=== PATIENT | female | born 1985 | race Caucasian/White ===

== ENCOUNTER 2017-01-24 10:56 | Emergency (ER) | payer OTHER ==
[~2017-01-24] VITALS: Ht 175.3 cm; Wt 164.0 kg
[~2017-01-24 10:56] MED LIST: ASPI-390 PO; BCPILLS PO; CARI350T28 PO; GABA1CAP4 PO; HYDR5SYP11 PO; METF-384 PO; MTR800 PO; OMEP40CA PO; PROP40TA5 PO; PRVC/20 PO; RANI300T PO; RBX750 PO; VNTHFA/IN INH; ZLF/100 PO
[2017-01-24 11:07] VITALS: TEMP 36.8; Ht 175.3 cm; Wt 164.0 kg
[2017-01-24] MEDS ORDERED: MoRPHine SULFATE 4 MG/ML 1 ML CARP\\VIAL IV STA (11:50)
[2017-01-24] MEDS ORDERED: KETOROLAC TROMETHAMINE 30 MG/ML VIAL IV STA (11:50)
[2017-01-24] MEDS ORDERED: SODIUM CHLORIDE 0.9% 1000ML 1,000 ML IV STA ×2 (11:50)
[2017-01-24] MEDS ORDERED: ONDANSETRON INJ 2 MG/ML 2 ML VIAL IV STA ×2 (11:50→15:06)
[2017-01-24 12:28] LABS: BASO % 0.9 %; BASO ABS # 0.05 K/uL (0-0.2); COMPLETE YES; EOS % 1.2 %; HEMATOCRIT 37.8 % (37-47); IG% 0.5 %; LYMPH % 23.8 %; LYMPH ABS # 1.38 K/uL (1.2-3.4); MEAN CELL VOLUME 81.1 fL (80-100); MEAN PLATELET VOLUME 9.1 fL (7.4-10.4); MONO % 9.5 %; NEUT % 64.1 %; PLATELET COUNT 421 K/uL (130-400); RED BLOOD COUNT 4.66 M/uL (4.2-5.4); WHITE BLOOD COUNT 5.81 K/uL (4.8-10.8)
[2017-01-24 12:45] LABS: BUN/CREATININE RATIO 12.3 (10-20); CALCIUM 7.9 mg/dl (8.5-10.1); CREATININE 0.82 mg/dl (0.60-1.20); POTASSIUM 3.7 mmol/L (3.5-5.1)
--- NOTE | 2017-01-24 13:06 | DIAGNOSTIC IMAGING REPORT ---
PELVIC ULTRASOUND CLINICAL HISTORY: Pelvic pain. COMPARISON STUDY: Pelvic ultrasound November 09, [address] of the abdomen and pelvis March 16, 2016. TECHNIQUE: Transabdominal and transvaginal sonography of the pelvis was performed. FINDINGS: This exam is compromised by suboptimal penetration. The uterus measures 8.7 x 4.4 x 5.1 cm. Endometrium measures 9 mm in thickness. There are numerous suspected nabothian cysts within the cervix. The right ovary was not visualized. The left ovary measured 4.6 x 2.9 x 4.3 cm. There is color flow within the left ovary. No free fluid was identified. IMPRESSION: 1. Unremarkable sonographic appearance of the uterus and left ovary. 2. Nonvisualization of the right ovary. 3. Numerous suspected nabothian cysts within the cervix. Electronically signed by: Jose Mccray M.D. 01/24/2017 1:04 PM Dictated Date/Time: 01/24/2017 1:03 PM
[2017-01-24] MEDS ORDERED: CARI350T28 PO (13:56)
[2017-01-24] MEDS ORDERED: IBUP-1428 PO (13:56)
[2017-01-24] MEDS ORDERED: PROP20TA67 PO (13:56)
[2017-01-24] MEDS ORDERED: GABA-113 PO (13:56)
[2017-01-24] MEDS ORDERED: TRAM-10 PO (13:56)
[2017-01-24] MEDS ORDERED: PRAV20TA PO (13:56)
[2017-01-24] MEDS ORDERED: LSN/10125 PO (13:56)
[2017-01-24] MEDS ORDERED: RANI300T PO (13:56)
[2017-01-24] MEDS ORDERED: PRLSR20 PO (13:56)
[2017-01-24] MEDS ORDERED: METF-384 PO (13:56)
[2017-01-24] MEDS ORDERED: BUPR75TA20 PO (13:56)
[2017-01-24] MEDS ORDERED: MONT1TAB3 PO (13:56)
[2017-01-24] MEDS ORDERED: CLIN1GEL5 TOP (13:56)
[2017-01-24] MEDS ORDERED: MoRPHine SULFATE 10 MG/ML CARP/VIAL IV STA (14:09)
[2017-01-24] MEDS ORDERED: DiphenhydrAMINE HCL 50 MG/ML VIAL IV STA (14:14)
[2017-01-24] MEDS ORDERED: OPTIRAY 320 IV PRN (14:15)
--- NOTE | 2017-01-24 14:47 | DIAGNOSTIC IMAGING REPORT ---
ABDOMEN AND PELVIS CT WITH IV CONTRAST CT DOSE: 2232.21 mGy.cm HISTORY: Pain PELVIC, RLQ PAIN TECHNIQUE: Multiaxial CT images of the abdomen and pelvis were performed following the use of intravenous contrast. COMPARISON STUDY: 03/16/2016 FINDINGS: Lung bases are clear. Liver spleen and pancreas are unremarkable. Prior cholecystectomy. Kidneys negative for calcification or hydronephrosis. Bowel pattern is remarkable for scattered colonic diverticulosis. There is no evidence for acute diverticulitis. May be a small follicular left ovarian cyst. Uterus is anteflexed. IMPRESSION: 1. Prior cholecystectomy. 2. Otherwise negative study abdomen and pelvis Electronically signed by: Oneil Santos M.D. 01/24/2017 2:46 PM Dictated Date/Time: 01/24/2017 2:38 PM
[2017-01-24] MEDS ORDERED: HYDR-5688 PO (15:42)
--- NOTE | 2017-01-24 15:42 | EMERGENCY ROOM VISIT NOTE ---
History First contact with patient: 11:17 Chief Complaint: OTHER COMPLAINT Stated Complaint: MASSIVE CRAMPS,DARK BLOOD PERIOD, PAIN IN RT SIDE History of Present Illness Patient is a 31-year-old white female with past medical history significant for metabolic syndrome, PCOS, fibromyalgia, migraine disorder and morbid obesity who presents emergency department for evaluation of pelvic pain. Patient is on oral contraceptive. She reports that her menses are typically irregular, and she gets a period every other month. She reports that she developed some pelvic cramping and had dark bloody discharge 3 days about 4 days ago. She states the flow was light. She had no bleeding or discharge yesterday. She states that she developed very severe pelvic cramping, right worse than left around midnight last night. She took ibuprofen, Excedrin Migraine and tramadol for her discomfort. She feels nauseous secondary to the pain. She feels it radiates through to her back. She does report some scant brownish discharge this morning. She denies any urinary symptoms. No changes in her bowel habits. She denies any chance of . She has never been . She was seen at an urgent care center in [place] and directed to the emergency department. She reports frequent east infections with her menses, denies any urinary symptoms or itching or burning. She presently rates her pain an 8/10. Review of Systems Review of systems as per HPI. All other systems reviewed were negative. 10 systems reviewed. Past Medical/Surgical History Medical Problems: (1) Abdominal cramps (2) Abdominal muscle strain (3) Abdominal pain (4) Abdominal pain (5) Abdominal pain (6) Acute Pancreatitis (7) Acute Sinusitis Nos (8) Anxiety (9) Bilateral leg pain (10) Calf pain (11) Cervical adenopathy (12) Chest pain (13) Cholecystectomy (14) Contusion, multiple sites (15) Epigastric pain (16) Fall (17) Fall down stairs (18) Gastroesophageal reflux disease (19) Headache (20) Headache (21) History of - hypertension (22) Hypokalemia (23) Intrauterine device (IUD) migration (24) Localized swelling of both lower legs (25) Medication reaction (26) Migraine Unspecified W/O Intractable Migraine (27) Nausea & vomiting (28) Nausea and vomiting (29) Neck pain (30) Neck pain (31) Non-cardiac chest pain (32) Ovarian cyst (33) Pain with swallowing (34) Pelvic pain (35) Polycystic Ovaries (36) Pre-syncope (37) Pure Hypercholesterolem (38) Pyelonephritis (39) Right ovarian cyst (40) Sore throat (41) Squeezing chest pain (42) URI (upper respiratory infection) (43) Urin Tract Infection Nos (44) Urinary tract infection (45) Wheezing Electronic medical records are reviewed and summarized as above/below. See Problem List. Family History Cancer Diabetes mellitus Gallbladder disease Hypertension Kidney disease Kidney stones Lung disease Social History Smoking Status: Never Smoker Alcohol Use: none Drug Use: none Marital Status: in relationship Housing Status: lives with significant other Occupation Status: unemployed Current/Historical Medications Scheduled Bupropion (Wellbutrin), 150 MG PO DAILY Carisoprodol (Soma), 350 MG PO QID Clindamycin Phosphate (Topical (Clindamycin Phosphate), 1 APPLN TOP BID Gabapentin (Neurontin), 300 MG PO TID Hctz/Lisinopril (Lisinopril/Hctz 10/12.5 Mg), 1 TAB PO DAILY Metformin Hcl (Glucophage), 1,000 MG PO DAILY Montelukast Sodium (Singulair), 10 MG PO DAILY Omeprazole (Prilosec), 20 MG PO DAILY Pravastatin (Pravachol ), 20 MG PO DAILY Propranolol (Inderal), 40 MG PO BID Ranitidine Hcl (Zantac), 300 MG PO DAILY Scheduled PRN Hydrocodone/Acetaminophen 5MG/325MG (Greenwood 5MG/325MG), 1-2 TABLETS PO Q4 PRN for Pain Ibuprofen (Motrin), 800 MG PO Q8H PRN for Pain Tramadol (Ultram), 50 MG PO Q8H PRN for Pain Allergies Coded Allergies: Mushroom Extract Complex (Verified Allergy, Severe, EDEMA OF FACE, LIPS, TONGUE, 06/16/16) Shellfish (Verified Allergy, Severe, EDEMA OF FACE, LIPS, TONGUE, 06/16/16 ) Sumatriptan (Verified Allergy, Severe, AIRWAY EDEMA, 06/16/16) Simvastatin (Verified Allergy, Mild, WORSENING OF MUSCLE PAIN, 06/16/16) Iodine (Verified Allergy, Unknown, RASH, 06/16/16) PER ARIANA IN CT, PT IS ALLERGIC TO TOPICAL IODINE, SO OPTIRAY IS OK FOR THIS PT. Mushroom (Verified Allergy, Unknown, SHORTNESS OF BREATH, 06/16/16) Physical Exam Vital Signs Date Time Temp Pulse Resp B/P (MAP) Pulse Ox O2 Delivery O2 Flow Rate FiO2 01/24/17 16:14 63 20 125/72 98 Room Air 01/24/17 14:46 60 20 111/66 100 Room Air 01/24/17 13:09 62 20 139/77 97 Room Air 01/24/17 11:07 36.8 78 18 144/88 98 Room Air Physical Exam CONSTITUTIONAL: Morbidly obese 31-year-old white female who is awake and alert and in mild distress due to her pelvic. EYES: Pupils equal, round, reactive to light and accommodation. EOMs intact without nystagmus. Sclera are anicteric. ENT: Tympanic membranes intact, with normal landmarks. External canals are clear. Oral and nasopharynx are clear. Mucous membranes are moist, no lesions , tongue and gums appear normal. NECK: No bruits auscultated. Supple without lymphadenopathy. No thyromegaly. No meningeal signs. Full active range of motion without discomfort. CARDIOVASCULAR: Regular rate and rhythm, with normal S1 and S2, no murmur or gallop or rub is heard. No carotid bruits auscultated. No JVD. Peripheral pulses easy to palpable. RESPIRATORY: Breath sounds equal and clear to auscultation without wheezes, rales, or rhonchi heard. Full and equal chest expansion without accessory muscle use or retractions. GI: Bowel sounds are present. Abdomen is soft, obese, tender in the suprapubic and right and left lower quadrants, without guarding, rebound or rigidity. No organomegaly. No pulsatile masses. Pelvic Exam: Genitalia are normal Vagina noted scant dark brownish bloody discharge. Cervix is closed without lesions. No cervical motion tenderness. Uterus and adnexa not palpable on bimanual exam due to patient body habitus. MUSCULOSKELETAL: Full range of motion of extremities x 4 with good strength. No cyanosis, edema, joint tenderness or swelling. No deformity. INTEGUMENTARY: No lesions or rash, normal skin turgor. NEUROLOGICAL: Alert, oriented, and cooperative. Cranial nerves, sensation and strength grossly intact. Pupils round, equal, and react to light, EOMs are full. LYMPH: No lymphadenopathy. Medical Decision & Procedures ER Provider Diagnostic Interpretation: PELVIC ULTRASOUND CLINICAL HISTORY: Pelvic pain. COMPARISON STUDY: Pelvic ultrasound November 09, [address] of the abdomen and pelvis March 16, 2016. TECHNIQUE: Transabdominal and transvaginal sonography of the pelvis was performed. FINDINGS: This exam is compromised by suboptimal penetration. The uterus measures 8.7 x 4.4 x 5.1 cm. Endometrium measures 9 mm in thickness. There are numerous suspected nabothian cysts within the cervix. The right ovary was not visualized. The left ovary measured 4.6 x 2.9 x 4.3 cm. There is color flow within the left ovary. No free fluid was identified. IMPRESSION: 1. Unremarkable sonographic appearance of the uterus and left ovary. 2. Nonvisualization of the right ovary. 3. Numerous suspected nabothian cysts within the cervix. ABDOMEN AND PELVIS CT WITH IV CONTRAST CT DOSE: 2232.21 mGy.cm HISTORY: Pain PELVIC, RLQ PAIN TECHNIQUE: Multiaxial CT images of the abdomen and pelvis were performed following the use of intravenous contrast. COMPARISON STUDY: 03/16/2016 FINDINGS: Lung bases are clear. Liver spleen and pancreas are unremarkable. Prior cholecystectomy. Kidneys negative for calcification or hydronephrosis. Bowel pattern is remarkable for scattered colonic diverticulosis. There is no evidence for acute diverticulitis. May be a small follicular left ovarian cyst. Uterus is anteflexed. IMPRESSION: 1. Prior cholecystectomy. 2. Otherwise negative study abdomen and pelvis Laboratory Results 01/24/17 12:00 Red Blood Count 4.66, Mean Corpuscular Volume 81.1, Mean Corpuscular Hemoglobin 26.0, Mean Corpuscular Hemoglobin Concent 32.0, Mean Platelet Volume 9.1, Neutrophils (%) (Auto) 64.1, Lymphocytes (%) (Auto) 23.8, Monocytes (%) (Auto) 9.5, Eosinophils (%) (Auto) 1.2, Basophils (%) (Auto) 0.9, Neutrophils # (Auto) 3.73, Lymphocytes # (Auto) 1.38, Monocytes # (Auto) 0.55, Eosinophils # (Auto) 0.07, Basophils # (Auto) 0.05 01/24/17 12:00 Test 01/24/17 00:00 01/24/17 11:30 01/24/17 12:00 Urine Test NEG (NEG) White Blood Count 5.81 K/uL (4.8-10.8) Red Blood Count 4.66 M/uL (4.2-5.4) Hemoglobin 12.1 g/dL (12.0-16.0) Hematocrit 37.8 % (37-47) Mean Corpuscular Volume 81.1 fL (80-100) Mean Corpuscular Hemoglobin 26.0 pg (25-34) Mean Corpuscular Hemoglobin Concent 32.0 g/dl (32-36) Platelet Count 421 K/uL (130-400) Mean Platelet Volume 9.1 fL (7.4-10.4) Neutrophils (%) (Auto) 64.1 % Lymphocytes (%) (Auto) 23.8 % Monocytes (%) (Auto) 9.5 % Eosinophils (%) (Auto) 1.2 % Basophils (%) (Auto) 0.9 % Neutrophils # (Auto) 3.73 K/uL (1.4-6.5) Lymphocytes # (Auto) 1.38 K/uL (1.2-3.4) Monocytes # (Auto) 0.55 K/uL (0.11-0.59) Eosinophils # (Auto) 0.07 K/uL (0-0.5) Basophils # (Auto) 0.05 K/uL (0-0.2) RDW Standard Deviation 48.3 fL (36.4-46.3) RDW Coefficient of Variation 16.4 % (11.5-14.5) Immature Granulocyte % (Auto) 0.5 % Immature Granulocyte # (Auto) 0.03 K/uL (0.00-0.02) Anion Gap 10.0 mmol/L (3-11) Est Creatinine Clear Calc Drug Dose 162.3 ml/min Estimated GFR () 109.0 Estimated GFR (Non- 94.0 BUN/Creatinine Ratio 12.3 (10-20) Calcium Level 7.9 mg/dl (8.5-10.1) Date/Time Source Procedure Growth Status 01/24/17 00:00 Vaginal Swab Trichomonas Preparation - Final Complete Medications Administered Medications (Trade) Dose Ordered Sig/Krupa Route Start Time Stop Time Status Last Admin Dose Admin Sodium Chloride 1,000 ml @ 999 mls/hr Q1H1M STAT IV 01/24/17 11:50 01/24/17 12:50 DC 01/24/17 12:03 999 MLS/HR Sodium Chloride 1,000 ml @ 250 mls/hr Q4H STAT IV 01/24/17 11:50 01/24/17 15:49 DC 01/24/17 12:03 250 MLS/HR Ondansetron HCl (Zofran Inj) 4 mg NOW STAT IV 01/24/17 11:50 01/24/17 11:53 DC 01/24/17 12:03 4 MG Ketorolac Tromethamine (Toradol Inj) 30 mg NOW STAT IV 01/24/17 11:50 01/24/17 11:53 DC 01/24/17 12:03 30 MG Morphine Sulfate (MoRPHine SULFATE INJ) 4 mg NOW STAT IV 01/24/17 11:50 01/24/17 11:53 DC 01/24/17 12:02 4 MG Morphine Sulfate (MoRPHine SULFATE INJ) 6 mg NOW STAT IV 01/24/17 14:09 01/24/17 14:11 DC 01/24/17 14:21 6 MG Diphenhydramine HCl (Benadryl Inj) 50 mg NOW STAT IV 01/24/17 14:14 01/24/17 14:15 DC 01/24/17 14:21 50 MG Ondansetron HCl (Zofran Inj) 4 mg NOW STAT IV 01/24/17 15:06 01/24/17 15:07 DC 01/24/17 15:24 4 MG Fluconazole (Diflucan Tab) 150 mg NOW ONCE PO 01/24/17 15:45 01/24/17 15:46 DC 01/24/17 16:13 150 MG ED Course The patient was seen and evaluated as above. Her old records were reviewed. IV lock was initiated and she was hydrated with normal saline solution. Pelvic exam was performed and cultures were obtained. CBC with differential, BMP and urine dip and urine test were performed. Given her history of ovarian cysts, pelvic ultrasound was ordered. Laboratory studies normal white count and stable H&H. Electrolytes are within normal limits. Urine dip noted trace blood, likely contamination from the vaginal bleeding, no other indicators for infection. Urine test was negative. Swab for Chlamydia and gonorrhea is pending. Trichomonas was negative. Vaginal Gram stain noted no clue cells and rare yeast. Pelvic ultrasound noted endometrial lining measuring 9 mm. Right ovary was unfortunately nonvisualized. Left ovary was unremarkable. There is no free fluid. Patient required additional pain medication and nausea medication after ultrasound and was given an additional dose of morphine and Zofran. Given her persistent right lower quadrant pain and nonvisualization of the right ovary by ultrasound, CT scan was performed. She was given Benadryl 50 mg IV prior to CT to premedicate as she reports a history of an iodine allergy. She has never had problems with IV contrast however. Postsurgical changes of cholecystectomy were noted. There is no evidence for hydronephrosis. Bowel pattern was unremarkable. Evidence for diverticulosis without diverticulitis. No adnexal lesions were noted. All laboratory and diagnostic imaging studies were reviewed with the patient. Differential diagnoses entertained included UTI, pyelonephritis, renal colic, ovarian cyst, ovarian torsion, dysmenorrhea, PID, tubo-ovarian abscess, mass or malignancy, , ectopic , among others. Conservative care measures were discussed. She was encouraged to use heat, ibuprofen, and was given a small prescription for Greenwood to use as needed for severe pain. She was advised to follow-up with her molded candles wicker for further care and evaluation. She was treated with Diflucan 150 mg orally 1 prior to discharge due to the yeast on vaginal Gram stain. The patient rated her discomfort a 4/10 at discharge. Medical Decision See Emergency Department course. [facility] Drug Monitoring Program Search Results: patient reviewed within database, no issues identified Impression Primary Impression: Pelvic pain Departure Information Prescriptions Hydrocodone/Acetaminophen 5MG/325MG (Greenwood 5MG/325MG) Tab 1-2 TABLETS PO Q4 Y for Pain, #15 TAB For Initial Treatment Prov: Leda Mejia PA 01/24/17 Referrals Radha Jimenez M.D. (PCP) Patient Instructions My [facility] Additional Instructions DO NOT drive, drink alcohol, operate machinery, or perform dangerous activities today. You were given medications in the ER that can affect your ability to safely function or operate a vehicle. Hydrocodone/Acetaminophen (Greenwood) 5/325 mg: Take 1-2 pills every four hours for breakthrough pain. Avoid alcohol, operating machinery or dangerous equipment, working on ladders or roofs, DRIVING, or situations where being under the influence may be dangerous. It is recommended to use an [id number] stool softener such as Colace, 100mg twice daily while taking this medication to avoid constipation. Ibuprofen(Motrin, Advil) may be used for fever or pain. Use 600mg every six hours as needed. Take with food. Avoid using more than 2400mg in a 24 hour period. Do not use 2400mg per day for more than three consecutive days without physician direction. Prolonged inappropriate use can lead to stomach upset or ulcers. This is available over the counter and typically comes in 200mg tablets. (AND/OR) Acetaminophen(Tylenol) may be used for fever or pain. Use 1000mg every eight hours as needed. Avoid using more than 3000mg in a 24 hour period. This is available over the counter. Zofran(odansetron) tablets 4mg: Take one and allow it to dissolve in your mouth every four hours as needed for nausea or vomiting. Phenergan(promethazine) tablets 25mg: Take one every six hours as needed for nausea. Avoid alcohol, operating machinery or dangerous equipment, working on ladders or roofs, DRIVING, or situations where being under the influence may be dangerous. Read all the package inserts or medication information paperwork provided. If you have any questions or concerns call your primary provider, pharmacist or the ER for assistance. Rest and drink plenty of fluids as tolerated. Slow sips of water or sports drinks are recommended instead of large amounts all at once. Continue current medications. Once your stomach is settled start with a clear liquid diet (jello, soup broth, etc.) and then advance as tolerated. You should avoid full, heavy meals for about 24 hrs from the time your symptoms resolved. Return to the ER immediately for worsening or persistent abdominal pain, vomiting, fevers, chest pains, difficulty breathing, black or bloody stools, worsening of your condition, or as needed. Follow up with your [facility] for a recheck of your current condition.
[2017-01-24] MEDS ORDERED: FLUCONAZOLE 50 MG TAB PO ONE (15:45)
[2017-01-24 16:14] VITALS: BP 125/72; PULSE 63; O2SAT 98
[2017-01-27 11:29] LABS: CHLAMYDIA TRACH RNA*** NOT DETECTED (NOT DETECTED); GC (NEIS GONORRHOEAE)RNA** NOT DETECTED (NOT DETECTED)
--- NOTE | 2017-01-28 15:45 | Pharmacy Progress Note ---
ED Pharmacist Culture FollowUp Date of Service: Jan 28, 2017. Genital Cx from 01/24 is growing yeast, not margareth albicans. The patient was seen in ER for c/o pelvic cramping, R worse than L, along w/ bloody discharge x 3 days. Patient does have a h/o frequent yeast infections, as well as metabolic syndrome and PCOS. trich, chlamydia and gonorrhoeae were all negative. Pelvic exam per provider's note: scant dark brown/blood discharge noted, no cervical lesions, no motion tenderness Patient was not dx with vulvovaginal candidiasis during this visit and was not given a rx for treatment of v candidiasis. The patient's symptoms did not fit with the dx of vaginal candidiasis "(no pruritis, burning, erythema, edema, excoriation, fissures; also drainage was not white or curd-like; nor was there mention of vaginal odor). If this organism were pathogenic, treatment would be difficult as non-margareth albicans yeast (c glabrata, c krusei) are typically resistant to fluconazole. The recommended treatment for such infections is intravaginal boric acid 600mg daily x 14 days. I did contact the patient at home to determine if her symptoms were improving. The patient states she went home from the hospital and took the pain medication and went to sleep. The next morning she awoke feeling much better and has continued to feel well. Based upon lack of classical s/s of vaginal candidiasis and improvement in symptoms w/o therapy as well as possibility that the patient could be colonized with non-albicans candidia, no treatment is required at this time.
== END 2017-01-24 16:25 | disposition home or self-care (01) ==
LOC: C.EDB 10:57 → C.EDA 16:25
DX: R10.2 Pelvic and perineal pain (principal); F41.9 Anxiety disorder, unspecified; K21.9 Gastro-esophageal reflux disease without esophagitis; I10 Essential (primary) hypertension; E87.6 Hypokalemia; G43.909 Migraine, unspecified, not intractable, without status migrainosus; E28.2 Polycystic ovarian syndrome; M79.7 Fibromyalgia; E88.81 Metabolic syndrome and other insulin resistance; Z80.9 Family history of malignant neoplasm, unspecified; Z83.3 Family history of diabetes mellitus; Z82.49 Family history of ischemic heart disease and other diseases of the circulatory system; Z83.79 Family history of other diseases of the digestive system; Z83.6 Family history of other diseases of the respiratory system; Z84.1 Family history of disorders of kidney and ureter; Z79.899 Other long term (current) drug therapy

== ENCOUNTER 2017-10-09 21:55 | Inpatient (IN) | payer OTHER ==
[~2017-10-09] VITALS: Ht 175.3 cm; Wt 164.9 kg
[~2017-10-09 21:55] MED LIST changes: -ASPI-390 PO; -BCPILLS PO; +BUPR75TA20 PO; +CLIN1GEL5 TOP; +GABA-113 PO; -GABA1CAP4 PO; -HYDR5SYP11 PO; +IBUP-1428 PO; +LSN/10125 PO; +MONT1TAB3 PO; -MTR800 PO; -OMEP40CA PO; +PRAV20TA PO; +PRLSR20 PO; +PROP20TA67 PO; -PROP40TA5 PO; -PRVC/20 PO; -RBX750 PO; +TRAM-10 PO; -VNTHFA/IN INH; -ZLF/100 PO
[2017-10-09] MEDS ORDERED: OMEP40CA41 PO (22:28)
[2017-10-09 22:42] LABS: BASO % 0.7 %; BASO ABS # 0.04 K/uL (0-0.2); EOS % 2.9 %; EOS ABS # 0.18 K/uL (0-0.5); HEMATOCRIT 28.9 % (37-47); HEMOGLOBIN 9.1 g/dL (12.0-16.0); IG# 0.01 K/uL (0.00-0.02); LYMPH % 18.7 %; LYMPH ABS # 1.15 K/uL (1.2-3.4); MEAN CELL VOLUME 77.7 fL (80-100); MEAN CORPUSCULAR HEMOGLOBIN 24.5 pg (25-34); MEAN CORPUSCULAR HGB CONC 31.5 g/dl (32-36); MONO % 8.6 %; MONO ABS # 0.53 K/uL (0.11-0.59); NEUT % 68.9 %; NEUT ABS # 4.24 K/uL (1.4-6.5); PLATELET COUNT 307 K/uL (130-400); RED CELL DISTRIBUTION WIDTH CV 16.3 % (11.5-14.5); RED CELL DISTRIBUTION WIDTH SD 46.3 fL (36.4-46.3); WHITE BLOOD COUNT 6.15 K/uL (4.8-10.8)
[2017-10-09] MEDS ORDERED: ALUMINUM/MAGNESIUM SUSP 30 ML UDC PO STA (22:53)
[2017-10-09] MEDS ORDERED: LIDOCAINE HCL 2% VISC SOLN 20 ML UDC PO STA (22:53)
[2017-10-09 22:58] LABS: ALBUMIN 3.4 gm/dl (3.4-5.0); CREATININE 0.74 mg/dl (0.60-1.20)
[2017-10-09] MEDS ORDERED: SODIUM CHLORIDE 0.9% 1000ML 1,000 ML IV STA (23:00)
[2017-10-09 23:01] LABS: TOTAL PROTEIN 7.2 gm/dl (6.4-8.2)
[2017-10-09 23:14] LABS: INR 0.9 (0.9-1.1); PTT PATIENT 22.6 SECONDS (21.0-31.0)
[2017-10-09 23:28] LABS: LIPASE 292 U/L (73-393)
[2017-10-09] MEDS ORDERED: DiphenhydrAMINE HCL 50 MG/ML VIAL ONE (23:28)
[2017-10-09] MEDS ORDERED: METOCLOPRAMIDE HCL INJ 5 MG/ML 2 ML VIAL ONE (23:28)
[2017-10-09] MEDS ORDERED: METOCLOPRAMIDE HCL INJ 5 MG/ML 2 ML VIAL IV STA ×2 (23:34→23:40)
[2017-10-09] MEDS ORDERED: DiphenhydrAMINE HCL 50 MG/ML VIAL IV STA ×2 (23:34→23:40)
[2017-10-09] MEDS ORDERED: NURSING VERBAL MED ORDER ONE (23:45)
[2017-10-10] VITALS (9 sets, daily range): BP systolic 89–126; BP diastolic 58–80; PULSE 72–99; TEMP 36.7–37.1; O2SAT 96–100; Ht 175.3 cm; Wt 164.9 kg
[2017-10-10] MEDS ORDERED: PANTOprazole INJ 40 MG in SYRINGE 0 ML IV ONE (00:15)
--- NOTE | 2017-10-10 02:17 | EMERGENCY ROOM VISIT NOTE ---
History First contact with patient: 22:50 Chief Complaint: WEAKNESS Stated Complaint: WEAKNESS/DIZZY Nursing Triage Summary: pt arrives via BLS for weakness/lethargy/nausa/dizziness/Abd Pain Hx of HTN and Fibromyalgia with Heavy Advil Use History of Present Illness The patient is a 32 year old female who presents to the Emergency Room with complaints of nausea, lightheadedness, dizziness, fatigue and upper abdominal discomfort for the past few days. Patient states she takes 800 mg of Motrin 3 times a day for quite some time along with Excedrin. She states she takes this for her migraines and her fibromyalgia. No history of ulcers in the past. No history of GI bleeding in the past. Patient states that she saw the family care doctor yesterday and was advised to double her omeprazole to 40 mg a day and to get a GI study. Her hemoglobin yesterday was 8.2. Patient denies blood or black in her stool but states she had a positive Hemoccult yesterday in the office. She states she has no obvious blood that she can see. Patient denies chest pain, dyspnea, fever, chills, diarrhea, back pain, urinary symptoms. Review of Systems An 10 system review of systems was completed with positives and pertinent negatives listed in the HPI. Past Medical/Surgical History Medical Problems: (1) Abdominal cramps (2) Abdominal muscle strain (3) Abdominal pain (4) Abdominal pain (5) Abdominal pain (6) Acute Pancreatitis (7) Acute Sinusitis Nos (8) Anxiety (9) Bilateral leg pain (10) Calf pain (11) Cervical adenopathy (12) Chest pain (13) Cholecystectomy (14) Contusion, multiple sites (15) Epigastric pain (16) Fall (17) Fall down stairs (18) Gastroesophageal reflux disease (19) Headache (20) Headache (21) History of - hypertension (22) Hypokalemia (23) Intrauterine device (IUD) migration (24) Localized swelling of both lower legs (25) Medication reaction (26) Migraine Unspecified W/O Intractable Migraine (27) Nausea & vomiting (28) Nausea and vomiting (29) Neck pain (30) Neck pain (31) Non-cardiac chest pain (32) Ovarian cyst (33) Pain with swallowing (34) Pelvic pain (35) Polycystic Ovaries (36) Pre-syncope (37) Pure Hypercholesterolem (38) Pyelonephritis (39) Right ovarian cyst (40) Sore throat (41) Squeezing chest pain (42) URI (upper respiratory infection) (43) Urin Tract Infection Nos (44) Urinary tract infection (45) Wheezing Family History Cancer Diabetes mellitus Gallbladder disease Hypertension Kidney disease Kidney stones Lung disease Social History Smoking Status: Never Smoker Alcohol Use: none Drug Use: none Marital Status: in relationship Housing Status: lives with significant other Occupation Status: unemployed Current/Historical Medications Scheduled Bupropion (Wellbutrin), 150 MG PO DAILY Carisoprodol (Soma), 350 MG PO QID Clindamycin Phosphate (Topical (Clindamycin Phosphate), 1 APPLN TOP BID Gabapentin (Neurontin), 300 MG PO TID Hctz/Lisinopril (Lisinopril/Hctz 10/12.5 Mg), 1 TAB PO DAILY Metformin Hcl (Glucophage), 1,000 MG PO DAILY Montelukast Sodium (Singulair), 10 MG PO DAILY Omeprazole (Prilosec), 40 MG PO DAILY Pravastatin (Pravachol ), 20 MG PO DAILY Propranolol (Inderal), 40 MG PO BID Ranitidine Hcl (Zantac), 300 MG PO DAILY Scheduled PRN Ibuprofen (Motrin), 800 MG PO Q8H PRN for Pain Tramadol (Ultram), 50 MG PO Q8H PRN for Pain Physical Exam Vital Signs Date Time Temp Pulse Resp B/P (MAP) Pulse Ox O2 Delivery O2 Flow Rate FiO2 10/10/17 00:41 81 20 118/66 98 Room Air 10/09/17 23:25 100 Room Air 10/09/17 23:24 80 24 134/75 100 Room Air 10/09/17 22:33 74 10/09/17 21:59 37.0 75 16 148/93 98 Room Air Physical Exam VITALS: Vitals are noted on the nurse's note and reviewed by myself. Vital signs stable. GENERAL: Pleasant female, in no acute distress, nondiaphoretic, well-developed well-nourished. SKIN: The skin was without rashes, erythema, edema, or bruising. There is no tenting of the skin. Capillary reflex less than 2 seconds. HEAD: Normocephalic atraumatic. EARS: External auditory canals clear, tympanic membranes pearly tirado without erythema or effusion bilaterally. EYES: Pupils equal round and reactive to light and accommodation. Conjunctivae without injection, sclerae without icterus. Extraocular movements intact. NOSE: Patent, turbinates without inflammation or discharge. MOUTH: Mucous membranes mildly dry pharynx without erythema or exudate. Uvula midline. Airway patent. Tongue does not deviate. NECK: Supple without nuchal rigidity. No lymphadenopathy. No thyromegaly. Cervical spine is nontender. No JVD. HEART: Regular rate and rhythm without murmurs gallops or rubs. LUNGS: Clear to auscultation bilaterally without wheezes, rales or rhonchi. No dullness to percussion. No retractions or accessory muscle use. ABDOMEN: Positive bowel sounds x 4. Normal tympanic percussion. Soft, protuberant, obese, tender to palpation epigastric region, no CVA tenderness without masses or organomegaly. Garcia sign negative. No guarding or rebound tenderness. MUSCULOSKELETAL: No muscle atrophy, erythema, noted. NEURO: Patient was alert and oriented to person place and time. Normal sensation to light and sharp touch. No focal neurological deficits.. Medical Decision & Procedures Laboratory Results 10/09/17 22:19 Red Blood Count 3.72, Mean Corpuscular Volume 77.7, Mean Corpuscular Hemoglobin 24.5, Mean Corpuscular Hemoglobin Concent 31.5, Mean Platelet Volume 9.0, Neutrophils (%) (Auto) 68.9, Lymphocytes (%) (Auto) 18.7, Monocytes (%) (Auto) 8.6, Eosinophils (%) (Auto) 2.9, Basophils (%) (Auto) 0.7, Neutrophils # (Auto) 4.24, Lymphocytes # (Auto) 1.15, Monocytes # (Auto) 0.53, Eosinophils # (Auto) 0.18, Basophils # (Auto) 0.04 10/09/17 22:19 Test 10/09/17 22:19 10/09/17 23:15 10/09/17 23:53 White Blood Count 6.15 K/uL (4.8-10.8) Red Blood Count 3.72 M/uL (4.2-5.4) Hemoglobin 9.1 g/dL (12.0-16.0) Hematocrit 28.9 % (37-47) Mean Corpuscular Volume 77.7 fL (80-100) Mean Corpuscular Hemoglobin 24.5 pg (25-34) Mean Corpuscular Hemoglobin Concent 31.5 g/dl (32-36) Platelet Count 307 K/uL (130-400) Mean Platelet Volume 9.0 fL (7.4-10.4) Neutrophils (%) (Auto) 68.9 % Lymphocytes (%) (Auto) 18.7 % Monocytes (%) (Auto) 8.6 % Eosinophils (%) (Auto) 2.9 % Basophils (%) (Auto) 0.7 % Neutrophils # (Auto) 4.24 K/uL (1.4-6.5) Lymphocytes # (Auto) 1.15 K/uL (1.2-3.4) Monocytes # (Auto) 0.53 K/uL (0.11-0.59) Eosinophils # (Auto) 0.18 K/uL (0-0.5) Basophils # (Auto) 0.04 K/uL (0-0.2) RDW Standard Deviation 46.3 fL (36.4-46.3) RDW Coefficient of Variation 16.3 % (11.5-14.5) Immature Granulocyte % (Auto) 0.2 % Immature Granulocyte # (Auto) 0.01 K/uL (0.00-0.02) Prothrombin Time 9.5 SECONDS (9.0-12.0) Prothromb Time International Ratio 0.9 (0.9-1.1) Activated Partial Thromboplast Time 22.6 SECONDS (21.0-31.0) Partial Thromboplastin Ratio 0.9 Anion Gap 5.0 mmol/L (3-11) Est Creatinine Clear Calc Drug Dose 141.6 ml/min Estimated GFR () 122.5 Estimated GFR (Non- 105.7 BUN/Creatinine Ratio 23.9 (10-20) Calcium Level 8.0 mg/dl (8.5-10.1) Magnesium Level 2.2 mg/dl (1.8-2.4) Total Bilirubin 0.2 mg/dl (0.2-1) Aspartate Amino Transf (AST/SGOT) 10 U/L (15-37) Alanine Aminotransferase (ALT/SGPT) 11 U/L (12-78) Alkaline Phosphatase 77 U/L (45-117) Total Creatine Kinase 68 U/L (26-192) Troponin I < 0.015 ng/ml (0-0.045) Total Protein 7.2 gm/dl (6.4-8.2) Albumin 3.4 gm/dl (3.4-5.0) Globulin 3.8 gm/dl (2.5-4.0) Albumin/Globulin Ratio 0.9 (0.9-2) Lipase 292 U/L (73-393) Thyroid Stimulating Hormone (TSH) 1.190 uIu/ml (0.300-4.500) Human Chorionic Gonadotropin, Qual NEG (NEG) Salicylates Level 1.8 mg/dl (2.8-20) Acetaminophen Level < 2 ug/ml (10-30) Urine Opiates Screen NEG (NEG) Urine Methadone, Qualitative NEG (NEG) Urine Barbiturates NEG (NEG) Urine Phencyclidine (PCP) Level NEG (NEG) Ur Amphetamine/Methamphetamine NEG (NEG) MDMA (Ecstasy) Screen POS (NEG) Urine Benzodiazepines Screen NEG (NEG) Urine Cocaine Metabolite NEG (NEG) Urine Marijuana (THC) NEG (NEG) Gastric Fluid pH 1 Gastric Fluid Occult Blood POS (NEG) Medications Administered Medications (Trade) Dose Ordered Sig/Krupa Route Start Time Stop Time Status Last Admin Dose Admin Lidocaine HCl (Viscous Lidocaine 2% Soln) 10 ml NOW STAT PO 10/09/17 22:53 10/09/17 22:58 DC 10/09/17 23:22 10 ML Al Hydroxide/Mg Hydroxide (Maalox Susp) 30 ml NOW STAT PO 10/09/17 22:53 10/09/17 22:58 DC 10/09/17 23:23 30 ML Sodium Chloride 1,000 ml @ 999 mls/hr Q1H1M STAT IV 10/09/17 23:00 10/10/17 00:00 DC 10/09/17 23:22 999 MLS/HR Diphenhydramine HCl (Benadryl Inj) 50 mg STK-MED ONCE .ROUTE 10/09/17 23:28 10/09/17 23:29 DC 10/09/17 23:32 12.5 MG Metoclopramide HCl (Reglan Inj) 10 mg STK-MED ONCE .ROUTE 10/09/17 23:28 10/09/17 23:29 DC 10/09/17 23:31 10 MG Pantoprazole Sodium 40 mg/ Syringe 10 ml @ 5 mls/min NOW ONCE IV 10/10/17 00:15 10/10/17 00:16 DC 10/10/17 00:39 5 MLS/MIN ED Course Prior records/ancillary studies reviewed. Triage Nursing notes reviewed. The patient's history was concerning for possible gastrointestinal bleeding. Differential diagnosis: Etiologies such as GI bleed due to NSAIDs use, diverticulosis, AVM, coagulopathy , colitis, inflammatory bowel disease, malignancy, Brina-Olvera tear, esophagitis, peptic ulcer disease, variceal bleed, gastritis, epistaxis, fissure , hemorrhoids, as well as others were entertained. Physical exam: As above. The patients vital signs were stable. ER treatment provided: GI cocktail, Protonix, Reglan, Benadryl On reassessment the patient felt better. Diagnostics interpreted by me: ECG: Normal sinus, normal intervals, T-wave inversion in V2 and V3, normal intervals, rate of 73. Impression normal sinus rhythm with T-wave inversions in the anteroseptal leads and interpreted by myself The labs revealed anemia, negative ECG, positive Gastroccult. Patient had a positive Hemoccult yesterday and declines rectal exam testing today Imaging studies: Chest x-ray with no acute consultation, pneumothorax free of my interpretation Right upper quadrant ultrasound Was reviewed and read by radiology. No ascites. Normal common bile duct. Consultation: A consultation was placed with Dr Martinez, hospitalist. The case was discussed and diagnostics were reviewed. The patient was evaluated in the ER for further treatment. This appears to be consistent with GI bleed due to NSAID use. Patient was still quite weak and felt lightheaded and dizzy. Patient had a positive Gastroccult and Hemoccult. She has a anemia that seems to be improving from yesterday's H&H. Patient had minimal blood tinged emesis. No full of blood. No black coffee-ground emesis. Patient was given Protonix and hydrated as above. She will be evaluated by medicine. By the evaluation outlined above emergent etiologies such as esophageal perforation, variceal bleed, coagulopathy, epistaxis, malignancy, inflammatory bowel disease, as well as others were deemed relatively unlikely. The pt informed about the findings as listed above. All questions were answered and pleased with the treatment. Case reviewed with my attending Medical Decision As above Medication Reconcilliation Current Medication List: was personally reviewed by me Blood Pressure Screening Patient's blood pressure: Normal blood pressure Impression Primary Impression: GI bleed due to NSAIDs Additional Impression: Anemia Departure Information Dispostion Being Evaluated By Hospitalist Condition FAIR Referrals No Doctor, Assigned (PCP) Patient Instructions My [facility] Problem Qualifiers
[2017-10-10] MEDS ORDERED: POLYETHYLENE (MIRALAX) 17 GM PACK PO PRN (03:00)
[2017-10-10] MEDS ORDERED: IV FLUIDS COMPLETED PRN ×2 (04:15)
[2017-10-10] MEDS: TRAMADOL HCL 50 MG TAB PO PRN ×2 (05:08→13:39)
--- NOTE | 2017-10-10 05:17 | History and Physical ---
History & Physical Date & Time of Service: Oct 10, 2017 at 05:05 Chief Complaint: Anemia, Weakness Primary Care Physician: No Doctor, Assigned History of Present Illness Source: patient, clinic records Patient is a 32 yo female who presented to the ER via ambulance for complaints of weakness, dizziness, lightheadedness, and MOBLEY that she felt today and became concerned about. The patient reports she was seen by her PCP yesterday for a 1 week hx of low grade fever, abdominal pain, fatigue, and dizziness; she had blood work and went home and slept. She states she then was called about her hemoglobin being low and was informed that if she felt worse she should go to the hospital and she then called EMS. She denies any melena or hematochezia. She reports taking ibuprofen 800 mg TID for fibromyalgia and related pain. She also states that she takes PPI and H2 caitlin and that her omprazole was increased recently. She reports symptoms of heartburn/reflux even on medications. She also reports having small caliber stool and intermittent diarrhea but no constipation. She reports having near syncopal episodes and felt the corners of her vision go dark but denies any actual syncope or loss of consciousness. No recent falls or trauma. Past Medical/Surgical History PMHx: Anxiety Chronic pelvic pain Depression Fibromyalgia GERD (gastroesophageal reflux disease) Hyperlipidemia Hypertension Migraine headache Morbid obesity (HCC) Panic disorder PCOS (polycystic ovarian syndrome) SurgHx: Cholecystectomy Family History Cancer Diabetes mellitus Gallbladder disease Hypertension Kidney disease Kidney stones Lung disease Social History Smoking Status: Never Smoker Drug Use: none Housing status: lives alone Multi-Drug Resistant Organisms History of MDRO: No Allergies Coded Allergies: Mushroom Extract Complex (Verified Allergy, Severe, EDEMA OF FACE, LIPS, TONGUE, 10/09/17) Shellfish (Verified Allergy, Severe, EDEMA OF FACE, LIPS, TONGUE, 10/09/17) Sumatriptan (Verified Allergy, Severe, AIRWAY EDEMA, 10/09/17) Simvastatin (Verified Allergy, Mild, WORSENING OF MUSCLE PAIN, 10/09/17) Iodine (Verified Allergy, Unknown, RASH, 10/09/17) PER ARIANA IN CT, PT IS ALLERGIC TO TOPICAL IODINE, SO OPTIRAY IS OK FOR THIS PT. Mushroom (Verified Allergy, Unknown, SHORTNESS OF BREATH, 10/09/17) Home Medications Scheduled Bupropion (Wellbutrin), 150 MG PO DAILY Carisoprodol (Soma), 350 MG PO QID Clindamycin Phosphate (Topical (Clindamycin Phosphate), 1 APPLN TOP BID Gabapentin (Neurontin), 300 MG PO TID Hctz/Lisinopril (Lisinopril/Hctz 10/12.5 Mg), 1 TAB PO DAILY Metformin Hcl (Glucophage), 1,000 MG PO DAILY Montelukast Sodium (Singulair), 10 MG PO DAILY Omeprazole (Prilosec), 40 MG PO DAILY Pravastatin (Pravachol ), 20 MG PO DAILY Propranolol (Inderal), 40 MG PO BID Ranitidine Hcl (Zantac), 300 MG PO DAILY Scheduled PRN Ibuprofen (Motrin), 800 MG PO Q8H PRN for Pain Tramadol (Ultram), 50 MG PO Q8H PRN for Pain Review of Systems Constitutional: + chills, + weakness, + fatigue, No fever, No sweats Eyes: No eye pain, No redness, No diplopia ENT: + nasal symptoms, No sore throat, No trouble swallowing Respiratory: + cough, No wheezing, No shortness of breath Cardiovascular: No chest pain, No edema, No palpitations Abdomen: + pain, + diarrhea, No nausea, No vomiting Musculoskeletal: + muscle pain, No joint pain, No swelling Genitourinary - Female: No dysuria, No urinary frequency, No urinary urgency, No urinary incontinence Neurologic: No memory loss, No paralysis, No numbness/tingling, No vertigo Psychiatric: + anxiety, No depression symptoms, No insomnia Endocrine: + fatigue, No excessive thirst, No excessive urination Hematologic / Lymphatic: No abnormal bleeding/bruising, No clotting problems, No night sweats Integumentary: No rash, No itch, No new/changing skin lesions Physical Exam Vital Signs Date Time Temp Pulse Resp B/P (MAP) Pulse Ox O2 Delivery O2 Flow Rate FiO2 10/10/17 04:06 96 18 120/69 99 Room Air 10/10/17 02:24 69 10/10/17 02:20 95 16 130/65 100 Room Air 10/10/17 00:41 81 20 118/66 98 Room Air 10/09/17 23:25 100 Room Air 10/09/17 23:24 80 24 134/75 100 Room Air 10/09/17 22:33 74 10/09/17 21:59 37.0 75 16 148/93 98 Room Air General Appearance: WD/WN, no apparent distress Head: normocephalic, atraumatic Eyes: PERRL, EOMI, sclerae normal (conjunctivae clear) ENT: hearing grossly normal Neck: supple, no JVD, trachea midline Respiratory/Chest: chest non-tender, lungs clear, normal breath sounds, no respiratory distress, no accessory muscle use Cardiovascular: regular rate, rhythm, no edema, no gallop, no JVD, no murmur Abdomen/GI: normal bowel sounds, soft, no organomegaly, + tenderness ( epigastric) Back: normal inspection, no CVA tenderness Extremities/Musculoskelatal: normal inspection, normal capillary refill, no pedal edema Neurologic/Psych: no motor/sensory deficits, alert, normal mood/affect, oriented x 3 Skin: normal color, warm/dry, no rash Diagnostics Laboratory Results Results Past 24 Hours Test 10/09/17 22:19 10/09/17 23:15 10/09/17 23:53 10/10/17 04:44 Range/Units White Blood Count 6.15 4.8-10.8 K/uL Red Blood Count 3.72 4.2-5.4 M/uL Hemoglobin 9.1 12.0-16.0 g/dL Hematocrit 28.9 37-47 % Mean Corpuscular Volume 77.7 80-100 fL Mean Corpuscular Hemoglobin 24.5 25-34 pg Mean Corpuscular Hemoglobin Concent 31.5 32-36 g/dl Platelet Count 307 130-400 K/uL Mean Platelet Volume 9.0 7.4-10.4 fL Neutrophils (%) (Auto) 68.9 % Lymphocytes (%) (Auto) 18.7 % Monocytes (%) (Auto) 8.6 % Eosinophils (%) (Auto) 2.9 % Basophils (%) (Auto) 0.7 % Neutrophils # (Auto) 4.24 1.4-6.5 K/uL Lymphocytes # (Auto) 1.15 1.2-3.4 K/uL Monocytes # (Auto) 0.53 0.11-0.59 K/uL Eosinophils # (Auto) 0.18 0-0.5 K/uL Basophils # (Auto) 0.04 0-0.2 K/uL RDW Standard Deviation 46.3 36.4-46.3 fL RDW Coefficient of Variation 16.3 11.5-14.5 % Immature Granulocyte % (Auto) 0.2 % Immature Granulocyte # (Auto) 0.01 0.00-0.02 K/uL Prothrombin Time 9.5 9.0-12.0 SECONDS Prothromb Time International Ratio 0.9 0.9-1.1 Activated Partial Thromboplast Time 22.6 21.0-31.0 SECONDS Partial Thromboplastin Ratio 0.9 Sodium Level 137 136-145 mmol/L Potassium Level 4.0 3.5-5.1 mmol/L Chloride Level 108 98-107 mmol/L Carbon Dioxide Level 24 21-32 mmol/L Anion Gap 5.0 3-11 mmol/L Blood Urea Nitrogen 18 7-18 mg/dl Creatinine 0.74 0.60-1.20 mg/dl Est Creatinine Clear Calc Drug Dose 141.6 ml/min Estimated GFR () 122.5 Estimated GFR (Non- 105.7 BUN/Creatinine Ratio 23.9 10-20 Random Glucose 98 70-99 mg/dl Calcium Level 8.0 8.5-10.1 mg/dl Magnesium Level 2.2 1.8-2.4 mg/dl Total Bilirubin 0.2 0.2-1 mg/dl Aspartate Amino Transf (AST/SGOT) 10 15-37 U/L Alanine Aminotransferase (ALT/SGPT) 11 12-78 U/L Alkaline Phosphatase 77 45-117 U/L Total Creatine Kinase 68 26-192 U/L Troponin I < 0.015 0-0.045 ng/ml Total Protein 7.2 6.4-8.2 gm/dl Albumin 3.4 3.4-5.0 gm/dl Globulin 3.8 2.5-4.0 gm/dl Albumin/Globulin Ratio 0.9 0.9-2 Lipase 292 73-393 U/L Thyroid Stimulating Hormone (TSH) 1.190 0.300-4.500 uIu/ml Human Chorionic Gonadotropin, Qual NEG NEG Salicylates Level 1.8 2.8-20 mg/dl Acetaminophen Level < 2 10-30 ug/ml Urine Opiates Screen NEG NEG Urine Methadone, Qualitative NEG NEG Urine Barbiturates NEG NEG Urine Phencyclidine (PCP) Level NEG NEG Ur Amphetamine/Methamphetamine NEG NEG MDMA (Ecstasy) Screen POS NEG Urine Benzodiazepines Screen NEG NEG Urine Cocaine Metabolite NEG NEG Urine Marijuana (THC) NEG NEG Gastric Fluid pH 1 Gastric Fluid Occult Blood POS NEG Impression Assessment and Plan ABDOMINAL PAIN, ANEMIA, GASTRIC CONTENTS WITH OCCULT BLOOD POSITIVE: -no overt bleeding noted, no melena or hematochezia -only one episode of vomiting which was in the ER after receiving a GI cocktail -started protonix -IV fluids -GI consultation -likely related to NSAID use which have been stopped -new microcytic anemia, obtain anemia/iron studies -outpatient Hb was 8.7 yesterday -outpatient FOBT was positive as well DIZZINESS/LIGHTHEADEDNESS/NEAR SYNCOPE: -likely related to above -check orthostatics -hydrate -will test for flu given symptoms HTN: -resume home meds with hold parameters DYSLIPIDEMIA: -continue statin PCOS: -hold metformin while hospitalized ANXIETY/DEPRESSION/FIBROMYALGIA: -continue home meds Level of Care Med/Surg Resuscitation Status FULL RESUSCITATION VTE Prophylaxis VTE Risk Assessment Done? Y/N: Yes Risk Level: Moderate Given or contraindicated: SCD's
[2017-10-10 05:39] LABS: HEMATOCRIT 28.1 % (37-47); HEMOGLOBIN 8.8 g/dL (12.0-16.0); MEAN CELL VOLUME 77.2 fL (80-100); MEAN CORPUSCULAR HEMOGLOBIN 24.2 pg (25-34); MEAN CORPUSCULAR HGB CONC 31.3 g/dl (32-36); MEAN PLATELET VOLUME 8.6 fL (7.4-10.4); PLATELET COUNT 288 K/uL (130-400); RED CELL DISTRIBUTION WIDTH CV 16.2 % (11.5-14.5); RED CELL DISTRIBUTION WIDTH SD 46.2 fL (36.4-46.3); WHITE BLOOD COUNT 6.83 K/uL (4.8-10.8)
[2017-10-10] MEDS ORDERED: SODIUM CHLORIDE 0.9% 1000ML 1,000 ML IV SCH (06:00)
[2017-10-10 06:05] LABS: CREATININE 0.64 mg/dl (0.60-1.20)
[2017-10-10] MEDS: ONDANSETRON INJ 2 MG/ML 2 ML VIAL IV PRN ×2 (06:05→15:00)
[2017-10-10 06:06] LABS: CALCIUM 7.8 mg/dl (8.5-10.1); POTASSIUM 3.5 mmol/L (3.5-5.1)
[2017-10-10 06:53] LABS: INFLUENZA A PCR Neg for Influ A (NEG); INFLUENZA B PCR Neg for Influ B (NEG)
--- NOTE | 2017-10-10 08:13 | DIAGNOSTIC IMAGING REPORT ---
ABDOMINAL ULTRASOUND, RIGHT UPPER QUADRANT HISTORY: Right upper quadrant abdominal pain.. COMPARISON: Abdomen and pelvis CT 01/24/2017. FINDINGS: Pancreas: The pancreatic tail is obscured by overlying bowel gas. The remaining portions of the pancreas are within normal limits. Liver: The liver is echogenic consistent with fatty change. Gallbladder: The gallbladder is surgically absent. CBD: 3 mm. Right kidney: No hydronephrosis. IMPRESSION: 1. Cholecystectomy. 2. Hepatic steatosis. Electronically signed by: Bertin Davis M.D. 10/10/2017 8:11 AM Dictated Date/Time: 10/10/2017 8:10 AM
[2017-10-10] MEDS: PRAVASTATIN SOD 20 MG TAB PO SCH (08:28)
[2017-10-10] MEDS: PANTOprazole INJ 40 MG in SYRINGE 0 ML IV SCH ×2 (08:28→21:55)
[2017-10-10] MEDS: ACETAMINOPHEN 325 MG TAB PO PRN ×2 (08:28→19:08)
[2017-10-10] MEDS: GABAPENTIN 400 MG CAP PO SCH ×3 (08:28→21:56)
[2017-10-10] MEDS: RANITIDINE HCL 150 MG TAB PO SCH (08:29)
[2017-10-10] MEDS: PROPRANOLOL HCL 20 MG TAB PO SCH ×2 (08:29→21:55)
[2017-10-10] MEDS: FERROUS SULFATE 325 MG TAB PO SCH ×3 (08:30→19:06)
[2017-10-10] MEDS: MONTELUKAST SOD 10 MG TAB PO SCH (08:30)
--- NOTE | 2017-10-10 08:30 | DIAGNOSTIC IMAGING REPORT ---
CHEST ONE VIEW PORTABLE HISTORY: epigastric pain COMPARISON: Chest 06/16/2016. FINDINGS: The cardiac silhouette is mildly enlarged. This has slightly progressed. The lungs are clear. There are low lung volumes. No pleural effusions. No pneumothorax. IMPRESSION: Mild enlargement of the cardiac silhouette. This has slightly progressed. Electronically signed by: Bertin Davis M.D. 10/10/2017 8:29 AM Dictated Date/Time: 10/10/2017 8:28 AM
[2017-10-10] MEDS: CARISOPRODOL 350 MG TAB PO SCH ×4 (08:36→21:55)
--- NOTE | 2017-10-10 10:14 | Gastrointestinal Consultation ---
Gastrointestinal Consultation Date of Consultation: Oct 10, 2017 Attending Physician: Dr. Johnson Consulting Physician: Dr. Del Valle Reason for Consultation: anemia, gastric occult positive History of Present Illness Patient is a 32 year old female patient who presented to the ED yesterday for dizziness, lightheadedness, weakness. GI is consulted for anemia, occult positive stool. She has epigastric pain intermittently since age 15. This epigastric pain is present nearly every day. The pain is better if she eats "a little something." The pain is burning and pulsing. She has had general stomach upset and she vomiting yesterday in the ED, which was "visibly pink," and occult positive. Occult stool was also positive but there was no gross GI bleeding. She has chronic diarrhea since her cholecystectomy in 2000. She reports that this pain is currently at baseline and that she presented to the ED because she is dizzy when she stands up. She reports taking 800mg Ibuprofen TID 3x/day for general pain with fibromyalgia. She also takes Excedrin Migraine (tylenol/aspirin/ caffiene) approx every 1-2 times/day. On arrival, Ms. Erazo's Hb was 9.1 and this morning is 8.8. MCV is 77 and iron 13. BUN is normal. LFTs, lipase and TSH are also normal. US on arrival was post cholecystectomy, 3mm CBD, fatty liver. Ms. Erazo has previously undergone EGD in 2011 and 2014 (for heartburn), both normal. Most recent CT abd/pelvis with IV contrast was 01/24/17: post cholecystectomy, otherwise normal. Past Medical/Surgical History Medical Problems: (1) Acute pharyngitis Status: Acute (2) Anemia Status: Acute (3) Anxiety Status: Chronic (4) Contusion of multiple sites Status: Acute (5) Cough Status: Acute (6) Gastroesophageal reflux disease Status: Chronic (7) GI bleed due to NSAIDs Status: Acute (8) History of - hypertension Status: Chronic (9) Laryngitis Status: Acute (10) Migraine Unspecified W/O Intractable Migraine Status: Chronic (11) Mononucleosis Status: Acute (12) Nausea Status: Acute (13) Pneumonia Status: Acute (14) Polycystic Ovaries Status: Chronic (15) Pure Hypercholesterolem Status: Chronic (16) Thoracic back pain Status: Acute (17) Weakness Status: Acute Past Medical History: 1. Anemia 2. Anxiety 3. Cough 4. GERD 6. HTN 7. Migraines 8. PCOS 9. Hyperlipidemia 10. Back pain Past Surgical History: 1. Cholecystectomy 2. Prior EGDs Family History Cancer Diabetes mellitus Gallbladder disease Hypertension Kidney disease Kidney stones Lung disease Social History Smoking Status: Never Smoker Alcohol Use: none Drug Use: none Housing Status: lives with significant other Allergies Coded Allergies: Mushroom Extract Complex (Verified Allergy, Severe, EDEMA OF FACE, LIPS, TONGUE, 10/09/17) Shellfish (Verified Allergy, Severe, EDEMA OF FACE, LIPS, TONGUE, 10/09/17) Sumatriptan (Verified Allergy, Severe, AIRWAY EDEMA, 10/09/17) Simvastatin (Verified Allergy, Mild, WORSENING OF MUSCLE PAIN, 10/09/17) Iodine (Verified Allergy, Unknown, RASH, 10/09/17) PER ARIANA IN CT, PT IS ALLERGIC TO TOPICAL IODINE, SO OPTIRAY IS OK FOR THIS PT. Mushroom (Verified Allergy, Unknown, SHORTNESS OF BREATH, 10/09/17) Current Medications Home Meds and Scripts Medications Dose Route/Sig Max Daily Dose Days Date Category Prilosec (Omeprazole) 40 Mg Cap 40 Mg PO DAILY 10/09/17 Reported Soma (Carisoprodol) 350 Mg Tab 350 Mg PO QID 01/24/17 Reported Ultram (Tramadol HCl) 50 Mg Tab 50 Mg PO Q8H PRN 01/24/17 Reported Clindamycin Phosphate (Clindamycin Phosphate (Topical) 1 % Gel 1 Appln TOP BID 01/24/17 Reported Wellbutrin (Bupropion HCl) 75 Mg Tab 150 Mg PO DAILY 01/24/17 Reported Zantac (Ranitidine Hcl) 300 Mg Tab 300 Mg PO DAILY 01/24/17 Reported Motrin (Ibuprofen) 800 Mg Tab 800 Mg PO Q8H PRN 01/24/17 Reported Lisinopril/Hctz 10/12.5 Mg (HCTZ/Lisinopril) 1 Ea Tab 1 Tab PO DAILY 01/24/17 Reported Pravachol (Pravastatin Sodium) 20 Mg Tab 20 Mg PO DAILY 01/24/17 Reported Inderal (Propranolol HCl) 20 Mg Tab 40 Mg PO BID 01/24/17 Reported Singulair (Montelukast Sodium) 10 Mg Tab 10 Mg PO DAILY 01/24/17 Reported Glucophage (Metformin Hcl) 1,000 Mg Tab 1,000 Mg PO DAILY 01/24/17 Reported Neurontin (Gabapentin) 300 Mg Cap 300 Mg PO TID 01/24/17 Reported Review of Systems Constitutional: No fever, No chills, No sweats, No weight loss, No weakness Eyes: No eye pain, No redness ENT: No sore throat, No trouble swallowing, No pain on swallowing Respiratory: No cough, No wheezing, No shortness of breath, No dyspnea on exertion Cardiac: No chest pain, No edema, No palpitations Abdomen: + see HPI, + pain, + nausea, + vomiting, + GI bleeding Neuro: No memory loss, No weakness, No numbness/tingling, No vertigo, No balance problems Psych: No depression symptoms, No anxiety, No insomnia Heme: No abnormal bleeding/bruising, No night sweats Endo: No excessive thirst, No excessive urination Skin: No rash, No itch, No new/changing skin lesions, No jaundice Physical Exam Date Time Temp Pulse Resp B/P (MAP) Pulse Ox O2 Delivery O2 Flow Rate FiO2 10/10/17 07:34 37.0 77 18 104/67 (79) 97 Room Air 10/10/17 05:26 Room Air 10/10/17 04:40 36.7 92 16 126/80 (95) 97 Room Air 10/10/17 04:06 96 18 120/69 99 Room Air 10/10/17 02:24 69 10/10/17 02:20 95 16 130/65 100 Room Air 10/10/17 00:41 81 20 118/66 98 Room Air 10/09/17 23:25 100 Room Air 10/09/17 23:24 80 24 134/75 100 Room Air 10/09/17 22:33 74 10/09/17 21:59 37.0 75 16 148/93 98 Room Air General Appearance: no apparent distress, + obese Eyes: normal inspection, EOMI Neck: supple, no adenopathy, thyroid normal Respiratory/Chest: chest non-tender, lungs clear, normal breath sounds, no accessory muscle use Cardiovascular: regular rate, rhythm, no JVD, no murmur Abdomen: normal bowel sounds, soft, no organomegaly, + tenderness (epigastric tenderness) Extremities: normal inspection, no pedal edema, normal capillary refill Neurologic/Psych: alert, normal mood/affect, oriented x 3 Skin: normal color, no jaundice, warm/dry, no rash Laboratory Results Last 24 Hours Test 10/09/17 22:19 10/09/17 23:15 10/09/17 23:53 10/10/17 05:00 White Blood Count 6.15 K/uL Red Blood Count 3.72 M/uL Hemoglobin 9.1 g/dL Hematocrit 28.9 % Mean Corpuscular Volume 77.7 fL Mean Corpuscular Hemoglobin 24.5 pg Mean Corpuscular Hemoglobin Concent 31.5 g/dl Platelet Count 307 K/uL Mean Platelet Volume 9.0 fL Neutrophils (%) (Auto) 68.9 % Lymphocytes (%) (Auto) 18.7 % Monocytes (%) (Auto) 8.6 % Eosinophils (%) (Auto) 2.9 % Basophils (%) (Auto) 0.7 % Neutrophils # (Auto) 4.24 K/uL Lymphocytes # (Auto) 1.15 K/uL Monocytes # (Auto) 0.53 K/uL Eosinophils # (Auto) 0.18 K/uL Basophils # (Auto) 0.04 K/uL RDW Standard Deviation 46.3 fL RDW Coefficient of Variation 16.3 % Immature Granulocyte % (Auto) 0.2 % Immature Granulocyte # (Auto) 0.01 K/uL Prothrombin Time 9.5 SECONDS Prothromb Time International Ratio 0.9 Activated Partial Thromboplast Time 22.6 SECONDS Partial Thromboplastin Ratio 0.9 Sodium Level 137 mmol/L Potassium Level 4.0 mmol/L Chloride Level 108 mmol/L Carbon Dioxide Level 24 mmol/L Anion Gap 5.0 mmol/L Blood Urea Nitrogen 18 mg/dl Creatinine 0.74 mg/dl Est Creatinine Clear Calc Drug Dose 141.6 ml/min Estimated GFR () 122.5 Estimated GFR (Non- 105.7 BUN/Creatinine Ratio 23.9 Random Glucose 98 mg/dl Calcium Level 8.0 mg/dl Magnesium Level 2.2 mg/dl Total Bilirubin 0.2 mg/dl Aspartate Amino Transf (AST/SGOT) 10 U/L Alanine Aminotransferase (ALT/SGPT) 11 U/L Alkaline Phosphatase 77 U/L Total Creatine Kinase 68 U/L Troponin I < 0.015 ng/ml Total Protein 7.2 gm/dl Albumin 3.4 gm/dl Globulin 3.8 gm/dl Albumin/Globulin Ratio 0.9 Lipase 292 U/L Thyroid Stimulating Hormone (TSH) 1.190 uIu/ml Human Chorionic Gonadotropin, Qual NEG Salicylates Level 1.8 mg/dl Acetaminophen Level < 2 ug/ml Urine Opiates Screen NEG Urine Methadone, Qualitative NEG Urine Barbiturates NEG Urine Phencyclidine (PCP) Level NEG Ur Amphetamine/Methamphetamine NEG MDMA (Ecstasy) Screen POS Urine Benzodiazepines Screen NEG Urine Cocaine Metabolite NEG Urine Marijuana (THC) NEG Gastric Fluid pH 1 Gastric Fluid Occult Blood POS Influenza Type A (RT-PCR) Neg for Influ A Influenza Type B (RT-PCR) Neg for Influ B Test 10/10/17 05:25 White Blood Count 6.83 K/uL Red Blood Count 3.64 M/uL Hemoglobin 8.8 g/dL Hematocrit 28.1 % Mean Corpuscular Volume 77.2 fL Mean Corpuscular Hemoglobin 24.2 pg Mean Corpuscular Hemoglobin Concent 31.3 g/dl RDW Standard Deviation 46.2 fL RDW Coefficient of Variation 16.2 % Platelet Count 288 K/uL Mean Platelet Volume 8.6 fL Sodium Level 137 mmol/L Potassium Level 3.5 mmol/L Chloride Level 108 mmol/L Carbon Dioxide Level 24 mmol/L Anion Gap 5.0 mmol/L Blood Urea Nitrogen 13 mg/dl Creatinine 0.64 mg/dl Est Creatinine Clear Calc Drug Dose 206.7 ml/min Estimated GFR () 134.9 Estimated GFR (Non- 116.4 BUN/Creatinine Ratio 19.6 Random Glucose 87 mg/dl Calcium Level 7.8 mg/dl Iron Level 13 mcg/dl Total Iron Binding Capacity 416 mcg/dl Transferrin 315 mg/dl Transferrin % Saturation 3 % Ferritin 2.6 ng/ml Impression Patient is a 32 year old female with epigastric pain, anemia, occult positive stool. She takes large amts of NSAID. Ulcer disease should be ruled out. Plan 1. Given symptoms and possible ulcer disease from NSAID use, we will arrange an EGD today. I performed a history and physical examination of the patient. I have discussed the patient's case, impression and plan with CECY Main. Her note reflects my findings and plan. High risk for ulcer disease. After evaluating patient, we will arrange an EGD. Jude Del Valle MD Addendum: EGD with two superficial, non bleeding ulcers Plan: 1. May have regular diet 2. BID PPI x 6 weeks then daily. 3. Limit NSAIDs. 4. No f/u EGD or GI office visit f/u required.
[2017-10-10] MEDS ORDERED: PROPOFOL IV EMULSION 10 MG/ML 20 ML VIAL IV ONE (12:04)
[2017-10-10] MEDS ORDERED: LIDOCAINE HCL 2% 2 ML VIAL (20MG/ML) ONE (12:04)
--- NOTE | 2017-10-10 12:05 | Endo History and Physical ---
History & Physical Date of Service: Oct 10, 2017. Chief Complaint: Referring Physician: Dr. Hogan History of Present Illness anemia and heme+stool Past Medical History Reflux, Gynecological Problems, Hypertension Past Surgical History Hx Cardiac Surgery: No Hx Internal Defibrillator: No Hx Pacemaker: No Hx Abdominal Surgery: No Hx Post-Op Nausea and Vomiting: No Hx Cancer Surgery: No Hx Thoracic Surgery: No Hx Orthopedic: No Hx Urinary Tract Surgery: No Social History Smoking Status: Never Smoker Hx Substance Use: No Hx Alcohol Use: No Allergies Coded Allergies: Mushroom Extract Complex (Verified Allergy, Severe, EDEMA OF FACE, LIPS, TONGUE, 10/09/17) Shellfish (Verified Allergy, Severe, EDEMA OF FACE, LIPS, TONGUE, 10/09/17) Sumatriptan (Verified Allergy, Severe, AIRWAY EDEMA, 10/09/17) Simvastatin (Verified Allergy, Mild, WORSENING OF MUSCLE PAIN, 10/09/17) Iodine (Verified Allergy, Unknown, RASH, 10/09/17) PER ARIANA IN CT, PT IS ALLERGIC TO TOPICAL IODINE, SO OPTIRAY IS OK FOR THIS PT. Mushroom (Verified Allergy, Unknown, SHORTNESS OF BREATH, 10/09/17) Current Medications Reported Home Medications Medications Dose Route/Sig Max Daily Dose Days Date Category Prilosec (Omeprazole) 40 Mg Cap 40 Mg PO DAILY 10/09/17 Reported Soma (Carisoprodol) 350 Mg Tab 350 Mg PO QID 01/24/17 Reported Ultram (Tramadol HCl) 50 Mg Tab 50 Mg PO Q8H PRN 01/24/17 Reported Clindamycin Phosphate (Clindamycin Phosphate (Topical) 1 % Gel 1 Appln TOP BID 01/24/17 Reported Wellbutrin (Bupropion HCl) 75 Mg Tab 150 Mg PO DAILY 01/24/17 Reported Zantac (Ranitidine Hcl) 300 Mg Tab 300 Mg PO DAILY 01/24/17 Reported Motrin (Ibuprofen) 800 Mg Tab 800 Mg PO Q8H PRN 01/24/17 Reported Lisinopril/Hctz 10/12.5 Mg (HCTZ/Lisinopril) 1 Ea Tab 1 Tab PO DAILY 01/24/17 Reported Pravachol (Pravastatin Sodium) 20 Mg Tab 20 Mg PO DAILY 01/24/17 Reported Inderal (Propranolol HCl) 20 Mg Tab 40 Mg PO BID 01/24/17 Reported Singulair (Montelukast Sodium) 10 Mg Tab 10 Mg PO DAILY 01/24/17 Reported Glucophage (Metformin Hcl) 1,000 Mg Tab 1,000 Mg PO DAILY 01/24/17 Reported Neurontin (Gabapentin) 300 Mg Cap 300 Mg PO TID 01/24/17 Reported Vital Signs Weight (Kilograms): 164.900 Height (Feet): 5 Height (Inches): 9.00 Date Time Temp Pulse Resp B/P (MAP) Pulse Ox O2 Delivery O2 Flow Rate FiO2 10/10/17 11:56 36.9 81 20 131/89 (103) 96 Room Air 10/10/17 07:34 37.0 77 18 104/67 (79) 97 Room Air 10/10/17 05:26 Room Air 10/10/17 04:40 36.7 92 16 126/80 (95) 97 Room Air 10/10/17 04:06 96 18 120/69 99 Room Air 10/10/17 02:24 69 10/10/17 02:20 95 16 130/65 100 Room Air 10/10/17 00:41 81 20 118/66 98 Room Air 10/09/17 23:25 100 Room Air 10/09/17 23:24 80 24 134/75 100 Room Air 10/09/17 22:33 74 10/09/17 21:59 37.0 75 16 148/93 98 Room Air Physical Exam General Appearance: no apparent distress Respiratory/Chest: Auscultation: breath sounds normal Cardiovascular: Heart Auscultation: RRR Abdomen: Inspection & Palpation: soft Liver: non-tender Assessment and Plan stable for EGD
--- NOTE | 2017-10-10 12:33 | GI REPORT ---
Procedure Date: 10/10/2017 12:12 PM Procedure: Upper GI endoscopy Indications: Heme positive stool, Anemia Medicines: See the Anesthesia note for documentation of the administered medications Complications: No immediate complications. Estimated Blood Loss: Estimated blood loss: none. Procedure: Pre-Anesthesia Assessment: - Prior to the procedure, a History and Physical was performed, and patient medications, allergies and sensitivities were reviewed. The patient's tolerance of previous anesthesia was reviewed. - The risks and benefits of the procedure and the sedation options and risks were discussed with the patient. All questions were answered and informed consent was obtained. - Patient identification and proposed procedure were verified prior to the procedure by the physician and the nurse. The procedure was verified in the pre-procedure area. - Pre-procedure physical examination revealed no contraindications to sedation. - After reviewing the risks and benefits, the patient was deemed in satisfactory condition to undergo the procedure. After obtaining informed consent, the endoscope was passed under direct vision. Throughout the procedure, the patient's blood pressure, pulse, and oxygen saturations were monitored continuously. The scope was introduced through the mouth, and advanced to the third part of duodenum. The upper GI endoscopy was accomplished without difficulty. The patient tolerated the procedure well. Findings: The esophagus was normal. Two non-bleeding superficial gastric ulcers with no stigmata of bleeding were found in the gastric antrum. The examined duodenum was normal. The cardia and gastric fundus were normal on retroflexion. Impression: - Normal esophagus. - Non-bleeding gastric ulcers with no stigmata of bleeding. - No active or old blood seen. - Normal examined duodenum. - No specimens collected. Recommendation: - Return patient to [facility] for [facility] care. - Minimize NSAID use. Jude Del Valle M.D. Jude Del Valle MD 10/10/2017 12:33:23 PM This report has been signed electronically. Note Initiated On: 10/10/2017 12:12 PM I attest to the content of the Intraoperative Record and orders documented therein, exceptions below
--- NOTE | 2017-10-10 13:46 | Anesthesiology Progress Note ---
Anesthesia Post Op Note Date & Time Oct 10, 2017 at 13:46 Vital Signs Pain Intensity: 6.0 Vital Signs Past 12 Hours Date Time Temp Pulse Resp B/P (MAP) Pulse Ox O2 Delivery O2 Flow Rate FiO2 10/10/17 12:55 72 16 138/82 (100) 100 Room Air 10/10/17 12:40 69 16 128/73 (91) 99 Room Air 10/10/17 12:25 77 12 120/70 (87) 98 Room Air 10/10/17 11:56 36.9 81 20 131/89 (103) 96 Room Air 10/10/17 08:10 Room Air 10/10/17 07:34 37.0 77 18 104/67 (79) 97 Room Air 10/10/17 05:26 Room Air 10/10/17 04:40 36.7 92 16 126/80 (95) 97 Room Air 10/10/17 04:06 96 18 120/69 99 Room Air 10/10/17 02:24 69 10/10/17 02:20 95 16 130/65 100 Room Air Notes Mental Status: alert / awake / arousable, participated in evaluation Pt Amnestic to Procedure: Yes Nausea / Vomiting: adequately controlled Pain: adequately controlled Airway Patency, RR, SpO2: stable & adequate BP & HR: stable & adequate Hydration State: stable & adequate Anesthetic Complications: no major complications apparent
--- NOTE | 2017-10-10 14:46 | Progress Note ---
Medicine Progress Note Date & Time of Visit: Oct 10, 2017 at 14:38. Subjective 32 yo F with persistent epigastric pain and lightheadedness presented via EMS. She underwent an EGD today and was found to have small non-bleeding gastric ulcers in setting of known Ibuprofen 800 TID use for the past two years for migraines and fibromyalgia. She still reports some mild abdominal pain and some nausea after eating lunch. She feels more comfortable going tomorrow. Objective Last 8 Hrs Date Time Temp Pulse Resp B/P (MAP) Pulse Ox O2 Delivery O2 Flow Rate FiO2 10/10/17 12:55 72 16 138/82 (100) 100 Room Air 10/10/17 12:40 69 16 128/73 (91) 99 Room Air 10/10/17 12:25 77 12 120/70 (87) 98 Room Air 10/10/17 11:56 36.9 81 20 131/89 (103) 96 Room Air 10/10/17 08:10 Room Air 10/10/17 07:34 37.0 77 18 104/67 (79) 97 Room Air Physical Exam: GEN: WNWD, in no acute distress, alert and appropriate HEENT: NC/AT, normal sclerae, MMM CARDIO: reg rate, S1/2 heard without m/g/r LUNGS: CTA bilaterally, no crackles, rales or wheezes, good diaphragmatic excursion ABD: soft, TTP in epigastric region, non-distended, +guarding, +BS EXTREMITY: RP and DP palpable 2+ bilat, no LE swelling or edema, extremities are warm and well-perfused NEURO: CN 2-12 grossly intact MUSC: ambulatory, no gross focal deficits. SKIN: warm and dry Laboratory Results: 10/10/17 05:25 10/10/17 05:25 Test 10/09/17 22:19 10/09/17 23:15 10/09/17 23:53 10/10/17 05:00 Immature Granulocyte % (Auto) 0.2 % White Blood Count 6.15 K/uL (4.8-10.8) Red Blood Count 3.72 M/uL (4.2-5.4) Hemoglobin 9.1 g/dL (12.0-16.0) Hematocrit 28.9 % (37-47) Mean Corpuscular Volume 77.7 fL (80-100) Mean Corpuscular Hemoglobin 24.5 pg (25-34) Mean Corpuscular Hemoglobin Concent 31.5 g/dl (32-36) Platelet Count 307 K/uL (130-400) Mean Platelet Volume 9.0 fL (7.4-10.4) Neutrophils (%) (Auto) 68.9 % Lymphocytes (%) (Auto) 18.7 % Monocytes (%) (Auto) 8.6 % Eosinophils (%) (Auto) 2.9 % Basophils (%) (Auto) 0.7 % Neutrophils # (Auto) 4.24 K/uL (1.4-6.5) Lymphocytes # (Auto) 1.15 K/uL (1.2-3.4) Monocytes # (Auto) 0.53 K/uL (0.11-0.59) Eosinophils # (Auto) 0.18 K/uL (0-0.5) Basophils # (Auto) 0.04 K/uL (0-0.2) Immature Granulocyte # (Auto) 0.01 K/uL (0.00-0.02) Prothrombin Time 9.5 SECONDS (9.0-12.0) Prothromb Time International Ratio 0.9 (0.9-1.1) Activated Partial Thromboplast Time 22.6 SECONDS (21.0-31.0) Partial Thromboplastin Ratio 0.9 Magnesium Level 2.2 mg/dl (1.8-2.4) Total Bilirubin 0.2 mg/dl (0.2-1) Aspartate Amino Transf (AST/SGOT) 10 U/L (15-37) Alanine Aminotransferase (ALT/SGPT) 11 U/L (12-78) Alkaline Phosphatase 77 U/L (45-117) Total Creatine Kinase 68 U/L (26-192) Troponin I < 0.015 ng/ml (0-0.045) Total Protein 7.2 gm/dl (6.4-8.2) Albumin 3.4 gm/dl (3.4-5.0) Globulin 3.8 gm/dl (2.5-4.0) Albumin/Globulin Ratio 0.9 (0.9-2) Lipase 292 U/L (73-393) Thyroid Stimulating Hormone (TSH) 1.190 uIu/ml (0.300-4.500) Human Chorionic Gonadotropin, Qual NEG (NEG) Salicylates Level 1.8 mg/dl (2.8-20) Acetaminophen Level < 2 ug/ml (10-30) Urine Opiates Screen NEG (NEG) Urine Methadone, Qualitative NEG (NEG) Urine Barbiturates NEG (NEG) Urine Phencyclidine (PCP) Level NEG (NEG) Ur Amphetamine/Methamphetamine NEG (NEG) MDMA (Ecstasy) Screen POS (NEG) Urine Benzodiazepines Screen NEG (NEG) Urine Cocaine Metabolite NEG (NEG) Urine Marijuana (THC) NEG (NEG) Gastric Fluid pH 1 Gastric Fluid Occult Blood POS (NEG) Influenza Type A (RT-PCR) Neg for Influ A (NEG) Influenza Type B (RT-PCR) Neg for Influ B (NEG) Test 10/10/17 05:25 Red Blood Count 3.64 M/uL (4.2-5.4) Mean Corpuscular Volume 77.2 fL (80-100) Mean Corpuscular Hemoglobin 24.2 pg (25-34) Mean Corpuscular Hemoglobin Concent 31.3 g/dl (32-36) RDW Standard Deviation 46.2 fL (36.4-46.3) RDW Coefficient of Variation 16.2 % (11.5-14.5) Mean Platelet Volume 8.6 fL (7.4-10.4) Anion Gap 5.0 mmol/L (3-11) Est Creatinine Clear Calc Drug Dose 206.7 ml/min Estimated GFR () 134.9 Estimated GFR (Non- 116.4 BUN/Creatinine Ratio 19.6 (10-20) Calcium Level 7.8 mg/dl (8.5-10.1) Iron Level 13 mcg/dl (35-150) Total Iron Binding Capacity 416 mcg/dl (250-450) Transferrin 315 mg/dl (200-360) Transferrin % Saturation 3 % (15-50) Ferritin 2.6 ng/ml (8.0-388.0) Last 24 Hours Test 10/09/17 22:19 10/09/17 23:15 10/09/17 23:53 10/10/17 05:00 White Blood Count 6.15 K/uL Red Blood Count 3.72 M/uL Hemoglobin 9.1 g/dL Hematocrit 28.9 % Mean Corpuscular Volume 77.7 fL Mean Corpuscular Hemoglobin 24.5 pg Mean Corpuscular Hemoglobin Concent 31.5 g/dl Platelet Count 307 K/uL Mean Platelet Volume 9.0 fL Neutrophils (%) (Auto) 68.9 % Lymphocytes (%) (Auto) 18.7 % Monocytes (%) (Auto) 8.6 % Eosinophils (%) (Auto) 2.9 % Basophils (%) (Auto) 0.7 % Neutrophils # (Auto) 4.24 K/uL Lymphocytes # (Auto) 1.15 K/uL Monocytes # (Auto) 0.53 K/uL Eosinophils # (Auto) 0.18 K/uL Basophils # (Auto) 0.04 K/uL RDW Standard Deviation 46.3 fL RDW Coefficient of Variation 16.3 % Immature Granulocyte % (Auto) 0.2 % Immature Granulocyte # (Auto) 0.01 K/uL Prothrombin Time 9.5 SECONDS Prothromb Time International Ratio 0.9 Activated Partial Thromboplast Time 22.6 SECONDS Partial Thromboplastin Ratio 0.9 Sodium Level 137 mmol/L Potassium Level 4.0 mmol/L Chloride Level 108 mmol/L Carbon Dioxide Level 24 mmol/L Anion Gap 5.0 mmol/L Blood Urea Nitrogen 18 mg/dl Creatinine 0.74 mg/dl Est Creatinine Clear Calc Drug Dose 141.6 ml/min Estimated GFR () 122.5 Estimated GFR (Non- 105.7 BUN/Creatinine Ratio 23.9 Random Glucose 98 mg/dl Calcium Level 8.0 mg/dl Magnesium Level 2.2 mg/dl Total Bilirubin 0.2 mg/dl Aspartate Amino Transf (AST/SGOT) 10 U/L Alanine Aminotransferase (ALT/SGPT) 11 U/L Alkaline Phosphatase 77 U/L Total Creatine Kinase 68 U/L Troponin I < 0.015 ng/ml Total Protein 7.2 gm/dl Albumin 3.4 gm/dl Globulin 3.8 gm/dl Albumin/Globulin Ratio 0.9 Lipase 292 U/L Thyroid Stimulating Hormone (TSH) 1.190 uIu/ml Human Chorionic Gonadotropin, Qual NEG Salicylates Level 1.8 mg/dl Acetaminophen Level < 2 ug/ml Urine Opiates Screen NEG Urine Methadone, Qualitative NEG Urine Barbiturates NEG Urine Phencyclidine (PCP) Level NEG Ur Amphetamine/Methamphetamine NEG MDMA (Ecstasy) Screen POS Urine Benzodiazepines Screen NEG Urine Cocaine Metabolite NEG Urine Marijuana (THC) NEG Gastric Fluid pH 1 Gastric Fluid Occult Blood POS Influenza Type A (RT-PCR) Neg for Influ A Influenza Type B (RT-PCR) Neg for Influ B Test 10/10/17 05:25 White Blood Count 6.83 K/uL Red Blood Count 3.64 M/uL Hemoglobin 8.8 g/dL Hematocrit 28.1 % Mean Corpuscular Volume 77.2 fL Mean Corpuscular Hemoglobin 24.2 pg Mean Corpuscular Hemoglobin Concent 31.3 g/dl RDW Standard Deviation 46.2 fL RDW Coefficient of Variation 16.2 % Platelet Count 288 K/uL Mean Platelet Volume 8.6 fL Sodium Level 137 mmol/L Potassium Level 3.5 mmol/L Chloride Level 108 mmol/L Carbon Dioxide Level 24 mmol/L Anion Gap 5.0 mmol/L Blood Urea Nitrogen 13 mg/dl Creatinine 0.64 mg/dl Est Creatinine Clear Calc Drug Dose 206.7 ml/min Estimated GFR () 134.9 Estimated GFR (Non- 116.4 BUN/Creatinine Ratio 19.6 Random Glucose 87 mg/dl Calcium Level 7.8 mg/dl Iron Level 13 mcg/dl Total Iron Binding Capacity 416 mcg/dl Transferrin 315 mg/dl Transferrin % Saturation 3 % Ferritin 2.6 ng/ml Assessment & Plan 32 yo F with persistent epigastric pain and lightheadedness presented via EMS. She underwent an EGD today and was found to have small non-bleeding gastric ulcers in setting of known Ibuprofen 800 TID use for the past two years for migraines and fibromyalgia. She still reports some mild abdominal pain and some nausea after eating lunch. She feels more comfortable going tomorrow. 1. PUD-likely related to high dose Ibuprofen over last two years. Counseled to use alternatives to control pain from her migraines and fibro including a possible Neurology referral for her migraines as these are clearly uncontrolled with 25 days a month she is affected. H pylori for stool was ordered. Per GI cont BID PPI x 6 weeks and then daily. Iron supplementation was started. 2. Fibromyalgia-cont Wellbutrin and Soma and gabapentin. 3. HTN-holding HCTZ/lisinopril for one more day with current BP readings. 4. PCOS-holding metformin while hospitalized. DVT proph-contraindicated, SCDs. Full Code Dispo-likely to home in am DO Nika Collins Hospitalist Consultants: Le Current Inpatient Medications: Current Inpatient Medications Medications (Trade) Dose Ordered Sig/Krupa Route Start Time Stop Time Status Last Admin Dose Admin Acetaminophen (Tylenol Tab) 650 mg Q4H PRN PO 10/10/17 03:00 11/09/17 02:59 10/10/17 08:28 650 MG Polyethylene (Miralax Powder Packet) 17 gm DAILY PRN PO 10/10/17 03:00 11/09/17 02:59 Ondansetron HCl (Zofran Inj) 4 mg Q6H PRN IV 10/10/17 03:00 11/09/17 02:59 10/10/17 06:05 4 MG Pantoprazole Sodium 40 mg/ Syringe 10 ml @ 5 mls/min DAILY@ IV 10/10/17 09:00 11/09/17 08:59 10/10/17 08:28 5 MLS/MIN Sodium Chloride 1,000 ml @ 80 mls/hr [id number] IV 10/10/17 06:00 10/10/17 18:29 10/10/17 06:02 80 MLS/HR Bupropion HCl (Wellbutrin Tab) 150 mg DAILY PO 10/10/17 09:00 11/09/17 08:59 10/10/17 08:29 150 MG Carisoprodol (Soma Tab) 350 mg QID PO 10/10/17 09:00 11/09/17 08:59 10/10/17 13:40 350 MG Montelukast Sodium (Singulair Tab) 10 mg DAILY PO 10/10/17 09:00 11/09/17 08:59 10/10/17 08:30 10 MG Pravastatin Sodium (Pravachol Tab) 20 mg DAILY PO 10/10/17 09:00 11/09/17 08:59 10/10/17 08:28 20 MG Propranolol HCl (Inderal Tab) 40 mg BID PO 10/10/17 09:00 11/09/17 08:59 10/10/17 08:29 40 MG Tramadol HCl (Ultram Tab) 50 mg Q8H PRN PO 10/10/17 03:15 11/09/17 03:14 10/10/17 13:39 50 MG Ranitidine HCl (zANTac TAB) 300 mg DAILY PO 10/10/17 09:00 11/09/17 08:59 10/10/17 08:29 300 MG Gabapentin (Neurontin Cap) 400 mg TID PO 10/10/17 09:00 11/09/17 08:59 10/10/17 13:39 400 MG Miscellaneous (Iv Fluids Completed) 1 ea PRN PRN N/A 10/10/17 04:15 10/10/18 04:14 Miscellaneous (Iv Fluids Completed) 1 ea PRN PRN N/A 10/10/17 04:15 10/10/18 04:14 Ferrous Sulfate (Feosol Tab) 325 mg TIDM PO 10/10/17 08:30 11/09/17 08:29 10/10/17 13:39 325 MG
[2017-10-10] MEDS ORDERED: MoRPHine SULFATE 2 MG/ML CARP IV STA (23:04)
[2017-10-10] MEDS ORDERED: MoRPHine SULFATE 2 MG/ML CARP ONE (23:19)
[2017-10-11] MEDS ORDERED: BUTALBITAL/ACETAMIN/CAFFEINE TAB PO STA (00:36)
[2017-10-11] MEDS ORDERED: PROMETHAZINE HCL 25 MG TAB PO ONE (00:45)
[2017-10-11] MEDS: TRAMADOL HCL 50 MG TAB PO PRN ×2 (04:32→13:32)
[2017-10-11 07:02] VITALS: BP_SYST 103; BP_SYST 112; BP_DIAS 70; BP_DIAS 72; PULSE 80; PULSE 94; TEMP 37; O2SAT 95; O2SAT 98
[2017-10-11 07:03] VITALS: BP 110/76; PULSE 99; O2SAT 97
--- NOTE | 2017-10-11 07:57 | DIAGNOSTIC IMAGING REPORT ---
CT OF THE HEAD WITHOUT CONTRAST CLINICAL HISTORY: Severe headache. COMPARISON STUDY: Head CT June 09, 2016. CT DOSE: 614.27 mGy.cm TECHNIQUE: Helical axial images of the head were obtained without IV contrast. Automated exposure control was utilized for the study. A dose lowering technique was utilized adhering to the principles of ALARA. FINDINGS: No acute intracranial hemorrhage, midline shift or mass effect is present. Ventricular system is normal. Basilar cisterns are patent. No extra axial collections are present. Blankenship-white differentiation is maintained. There are no findings to suggest acute dural sinus thrombosis or acute territorial infarct. There are no significant calvarial abnormalities. Visualized portions of the sinuses and mastoid air cells are clear. IMPRESSION: No acute intracranial findings. Electronically signed by: Jose Mccray M.D. 10/11/2017 7:56 AM Dictated Date/Time: 10/11/2017 7:55 AM
[2017-10-11] MEDS: PANTOprazole INJ 40 MG in SYRINGE 0 ML IV SCH (08:19)
[2017-10-11] MEDS: GABAPENTIN 400 MG CAP PO SCH ×3 (08:20→21:19)
[2017-10-11] MEDS: PROPRANOLOL HCL 20 MG TAB PO SCH ×2 (08:20→21:17)
[2017-10-11] MEDS: RANITIDINE HCL 150 MG TAB PO SCH (08:21)
[2017-10-11] MEDS: FERROUS SULFATE 325 MG TAB PO SCH ×3 (08:21→17:49)
[2017-10-11] MEDS: PRAVASTATIN SOD 20 MG TAB PO SCH (08:21)
[2017-10-11] MEDS: MONTELUKAST SOD 10 MG TAB PO SCH (08:21)
[2017-10-11] MEDS: CARISOPRODOL 350 MG TAB PO SCH ×4 (08:33→21:16)
[2017-10-11] MEDS: BUTALBITAL/ACETAMIN/CAFFEINE TAB PO PRN ×3 (08:54→21:17)
[2017-10-11] MEDS ORDERED: BUTALBITAL/ACETAMIN/CAFFEINE TAB PO ONE (11:30)
[2017-10-11] MEDS: LISINOPRIL/HCTZ 10/12.5MG TAB PO SCH (11:56)
[2017-10-11 12:30] VITALS: BP 154/71; PULSE 70; TEMP 37.2; O2SAT 98
--- NOTE | 2017-10-11 15:34 | Progress Note ---
Medicine Progress Note Date & Time of Visit: Oct 11, 2017 at 13:56. Subjective 32 yo F with persistent epigastric pain and lightheadedness presented via EMS. She underwent an EGD and was found to have small non-bleeding gastric ulcers in setting of known Ibuprofen 800 TID use for the past two years for migraines and fibromyalgia. Overnight her migraines became very painful and were somewhat helped by Fioricet, however, this morning her pain is too severe to go home. She has an allergy to triptans. She is on Inderal likely for migraine prophylaxis but is not well-controlled at baseline reporting 25 headaches per month. She is tolerating PO and feels somewhat better mostly because now she knows what is wrong and has a plan for treatment. Objective Last 8 Hrs Date Time Temp Pulse Resp B/P (MAP) Pulse Ox O2 Delivery O2 Flow Rate FiO2 10/11/17 08:17 Room Air 10/11/17 07:03 99 18 110/76 (87) 97 Room Air 10/11/17 07:02 37.0 80 18 112/72 (85) 95 Room Air 10/11/17 07:02 94 18 103/70 (81) 98 Room Air Physical Exam: GEN: obese, in no acute distress, alert and appropriate, lying in a dark room HEENT: NC/AT, normal sclerae, MMM CARDIO: reg rate, S1/2 heard without m/g/r LUNGS: CTA bilaterally, no crackles, rales or wheezes, good diaphragmatic excursion ABD: soft, TTP in epigastric region, non-distended, no guarding, +BS EXTREMITY: RP and DP palpable 2+ bilat, no LE swelling or edema, extremities are warm and well-perfused NEURO: CN 2-12 grossly intact MUSC: ambulatory, no gross focal deficits. SKIN: warm and dry Laboratory Results: 10/10/17 05:25 10/10/17 05:25 Test 10/09/17 22:19 10/09/17 23:15 10/09/17 23:53 10/10/17 05:00 Immature Granulocyte % (Auto) 0.2 % White Blood Count 6.15 K/uL (4.8-10.8) Red Blood Count 3.72 M/uL (4.2-5.4) Hemoglobin 9.1 g/dL (12.0-16.0) Hematocrit 28.9 % (37-47) Mean Corpuscular Volume 77.7 fL (80-100) Mean Corpuscular Hemoglobin 24.5 pg (25-34) Mean Corpuscular Hemoglobin Concent 31.5 g/dl (32-36) Platelet Count 307 K/uL (130-400) Mean Platelet Volume 9.0 fL (7.4-10.4) Neutrophils (%) (Auto) 68.9 % Lymphocytes (%) (Auto) 18.7 % Monocytes (%) (Auto) 8.6 % Eosinophils (%) (Auto) 2.9 % Basophils (%) (Auto) 0.7 % Neutrophils # (Auto) 4.24 K/uL (1.4-6.5) Lymphocytes # (Auto) 1.15 K/uL (1.2-3.4) Monocytes # (Auto) 0.53 K/uL (0.11-0.59) Eosinophils # (Auto) 0.18 K/uL (0-0.5) Basophils # (Auto) 0.04 K/uL (0-0.2) Immature Granulocyte # (Auto) 0.01 K/uL (0.00-0.02) Prothrombin Time 9.5 SECONDS (9.0-12.0) Prothromb Time International Ratio 0.9 (0.9-1.1) Activated Partial Thromboplast Time 22.6 SECONDS (21.0-31.0) Partial Thromboplastin Ratio 0.9 Magnesium Level 2.2 mg/dl (1.8-2.4) Total Bilirubin 0.2 mg/dl (0.2-1) Aspartate Amino Transf (AST/SGOT) 10 U/L (15-37) Alanine Aminotransferase (ALT/SGPT) 11 U/L (12-78) Alkaline Phosphatase 77 U/L (45-117) Total Creatine Kinase 68 U/L (26-192) Troponin I < 0.015 ng/ml (0-0.045) Total Protein 7.2 gm/dl (6.4-8.2) Albumin 3.4 gm/dl (3.4-5.0) Globulin 3.8 gm/dl (2.5-4.0) Albumin/Globulin Ratio 0.9 (0.9-2) Lipase 292 U/L (73-393) Thyroid Stimulating Hormone (TSH) 1.190 uIu/ml (0.300-4.500) Human Chorionic Gonadotropin, Qual NEG (NEG) Salicylates Level 1.8 mg/dl (2.8-20) Acetaminophen Level < 2 ug/ml (10-30) Urine Opiates Screen NEG (NEG) Urine Methadone, Qualitative NEG (NEG) Urine Barbiturates NEG (NEG) Urine Phencyclidine (PCP) Level NEG (NEG) Ur Amphetamine/Methamphetamine NEG (NEG) MDMA (Ecstasy) Screen POS (NEG) Urine Benzodiazepines Screen NEG (NEG) Urine Cocaine Metabolite NEG (NEG) Urine Marijuana (THC) NEG (NEG) Gastric Fluid pH 1 Gastric Fluid Occult Blood POS (NEG) Influenza Type A (RT-PCR) Neg for Influ A (NEG) Influenza Type B (RT-PCR) Neg for Influ B (NEG) Test 10/10/17 05:25 10/10/17 20:50 Red Blood Count 3.64 M/uL (4.2-5.4) Mean Corpuscular Volume 77.2 fL (80-100) Mean Corpuscular Hemoglobin 24.2 pg (25-34) Mean Corpuscular Hemoglobin Concent 31.3 g/dl (32-36) RDW Standard Deviation 46.2 fL (36.4-46.3) RDW Coefficient of Variation 16.2 % (11.5-14.5) Mean Platelet Volume 8.6 fL (7.4-10.4) Anion Gap 5.0 mmol/L (3-11) Est Creatinine Clear Calc Drug Dose 206.7 ml/min Estimated GFR () 134.9 Estimated GFR (Non- 116.4 BUN/Creatinine Ratio 19.6 (10-20) Calcium Level 7.8 mg/dl (8.5-10.1) Iron Level 13 mcg/dl (35-150) Total Iron Binding Capacity 416 mcg/dl (250-450) Transferrin 315 mg/dl (200-360) Transferrin % Saturation 3 % (15-50) Ferritin 2.6 ng/ml (8.0-388.0) Last 24 Hours Test 10/10/17 20:50 Assessment & Plan 32 yo F with persistent epigastric pain and lightheadedness presented via EMS. She underwent an EGD and was found to have small non-bleeding gastric ulcers in setting of known Ibuprofen 800 TID use for the past two years for migraines and fibromyalgia. Overnight her migraines became very painful and were somewhat helped by Fioricet, however, this morning her pain is too severe to go home. She has an allergy to triptans. She is on Inderal likely for migraine prophylaxis but is not well-controlled at baseline reporting 25 headaches per month. She is tolerating PO and feels somewhat better mostly because now she knows what is wrong and has a plan for treatment. 1. PUD-likely related to high dose Ibuprofen over last two years. Counseled to use alternatives to control pain from her migraines and fibro including a possible Neurology referral for her migraines as these are clearly uncontrolled with 25 days a month she is affected. H pylori for stool was ordered. Per GI cont BID PPI x 6 weeks and then daily. Iron supplementation was started. 2. Fibromyalgia-cont Wellbutrin and Soma and gabapentin. 3. Migraines-very severe, patient doesn't feel well enough to go home as a result. Neurology was consulted for assistance. Cont Fioricet 4. HTN-restarted lis HCT per outpatient regimen. 5. PCOS-holding metformin while hospitalized. DVT proph-contraindicated, SCDs. Full Code Dispo-likely to home in am [facility] Consult[facility]: Le Current Inpatient Medications: Current Inpatient Medications Medications (Trade) Dose Ordered Sig/Krupa Route Start Time Stop Time Status Last Admin Dose Admin Acetaminophen (Tylenol Tab) 650 mg Q4H PRN PO 10/10/17 03:00 11/09/17 02:59 10/10/17 19:08 650 MG Polyethylene (Miralax Powder Packet) 17 gm DAILY PRN PO 10/10/17 03:00 11/09/17 02:59 Ondansetron HCl (Zofran Inj) 4 mg Q6H PRN IV 10/10/17 03:00 11/09/17 02:59 10/10/17 15:00 4 MG Pantoprazole Sodium 40 mg/ Syringe 10 ml @ 5 mls/min DAILY@,21 IV 10/10/17 09:00 11/09/17 08:59 10/11/17 08:19 5 MLS/MIN Bupropion HCl (Wellbutrin Tab) 150 mg DAILY PO 10/10/17 09:00 11/09/17 08:59 10/11/17 08:20 150 MG Carisoprodol (Soma Tab) 350 mg QID PO 10/10/17 09:00 11/09/17 08:59 10/11/17 13:32 350 MG Montelukast Sodium (Singulair Tab) 10 mg DAILY PO 10/10/17 09:00 11/09/17 08:59 10/11/17 08:21 10 MG Pravastatin Sodium (Pravachol Tab) 20 mg DAILY PO 10/10/17 09:00 11/09/17 08:59 10/11/17 08:21 20 MG Propranolol HCl (Inderal Tab) 40 mg BID PO 10/10/17 09:00 11/09/17 08:59 10/11/17 08:20 40 MG Tramadol HCl (Ultram Tab) 50 mg Q8H PRN PO 10/10/17 03:15 11/09/17 03:14 10/11/17 13:32 50 MG Ranitidine HCl (zANTac TAB) 300 mg DAILY PO 10/10/17 09:00 11/09/17 08:59 10/11/17 08:21 300 MG Gabapentin (Neurontin Cap) 400 mg TID PO 10/10/17 09:00 11/09/17 08:59 10/11/17 13:24 400 MG Miscellaneous (Iv Fluids Completed) 1 ea PRN PRN N/A 10/10/17 04:15 10/10/18 04:14 Miscellaneous (Iv Fluids Completed) 1 ea PRN PRN N/A 10/10/17 04:15 10/10/18 04:14 Ferrous Sulfate (Feosol Tab) 325 mg TIDM PO 10/10/17 08:30 11/09/17 08:29 10/11/17 13:25 325 MG Acetaminophen/ Butalbital/ Caffeine (Fioricet Tab) 1 tab Q4H PRN PO 10/11/17 08:30 11/10/17 08:29 10/11/17 08:54 1 TAB HCTZ/Lisinopril (Prinzide 10-12.5MG Tab) 1 tab DAILY PO 10/11/17 11:30 11/10/17 11:29 10/11/17 11:56 1 TAB
[2017-10-11 15:48] VITALS: BP_SYST 88; BP_SYST 93; BP_SYST 94; BP_DIAS 54; BP_DIAS 63; BP_DIAS 66; PULSE 73; PULSE 83; PULSE 87; TEMP 37; O2SAT 96
[2017-10-11] MEDS: ONDANSETRON INJ 2 MG/ML 2 ML VIAL IV PRN (21:13)
[2017-10-11 21:15] VITALS: BP 93/59; PULSE 72
[2017-10-11] MEDS: PANTOprazole SOD 40 MG TAB PO SCH (21:17)
[2017-10-11 23:20] VITALS: BP_SYST 93; BP_SYST 95; BP_SYST 98; BP_DIAS 59; BP_DIAS 63; BP_DIAS 65; PULSE 77; PULSE 90; PULSE 99; TEMP 37; O2SAT 96
[2017-10-12] VITALS (7 sets, daily range): BP systolic 85–117; BP diastolic 47–76; PULSE 60–83; TEMP 36.6–37.2; O2SAT 97–100
[2017-10-12] MEDS: BUTALBITAL/ACETAMIN/CAFFEINE TAB PO PRN ×4 (01:46→17:21)
[2017-10-12] MEDS ORDERED: hydrOXYzine HCL 25 MG TAB PO STA (02:10)
[2017-10-12] MEDS: ONDANSETRON INJ 2 MG/ML 2 ML VIAL IV PRN ×2 (02:23→19:10)
[2017-10-12] MEDS: PANTOprazole SOD 40 MG TAB PO SCH ×2 (08:24→20:16)
[2017-10-12] MEDS: RANITIDINE HCL 150 MG TAB PO SCH (08:24)
[2017-10-12] MEDS: PROPRANOLOL HCL 20 MG TAB PO SCH ×2 (10:21→20:15)
[2017-10-12] MEDS: PRAVASTATIN SOD 20 MG TAB PO SCH (10:22)
[2017-10-12] MEDS: GABAPENTIN 400 MG CAP PO SCH ×3 (10:22→20:16)
[2017-10-12] MEDS: FERROUS SULFATE 325 MG TAB PO SCH ×3 (10:22→17:20)
[2017-10-12] MEDS: MONTELUKAST SOD 10 MG TAB PO SCH (10:22)
[2017-10-12] MEDS: LISINOPRIL/HCTZ 10/12.5MG TAB PO SCH (10:23)
[2017-10-12] MEDS: CARISOPRODOL 350 MG TAB PO SCH ×4 (10:34→20:16)
[2017-10-12] MEDS: TRAMADOL HCL 50 MG TAB PO PRN (10:47)
--- NOTE | 2017-10-12 11:56 | CONSULTATION REPORT ---
DATE OF CONSULTATION: 10/12/2017 CONSULTATION FOR: Dr. Hogan. HISTORY OF PRESENT ILLNESS: Funmi is 32 years old, is right handed, lists her primary care physician is Dr. Jimenez. I really has not seen her in years and is going to switch over to one of the [facility] providers in [place], but is yet to make a choice. She was admitted to the hospital by ambulance for complaints of weakness, dizziness, lightheadedness and severe headache that had become increasingly severe over the past several weeks and it is revealed now that she probably had a headache ____ last 30 days and was taking quite a bit of ibuprofen over the counter. She was seen by a physician about a week ago with a low grade fever, abdominal pain, fatigue and dizziness, had blood work done, went home and then she was called because her hemoglobin was extremely low and she was then sent to the Emergency Room. There is no really history of melena or hematochezia. She was taking the ibuprofen. She has taken proton pump inhibitor and her omeprazole was increased, but despite this, she presented and was evaluated by GI service, but while better in terms of this issue, she has continued to have the headache and Dr. Hogan has asked me to take a look at her and make any suggestions. PAST MEDICAL HISTORY: Does show chronic anxiety, chronic pelvic pain, depression, fibromyalgia, GERD, dyslipidemia, hypertension, and periodic migraine headaches with family history for same, morbid obesity with weight actually reducing over the past several years but still well over 350 pounds, panic disorder and polycystic ovarian syndrome. PAST SURGICAL HISTORY: Surgically she had a cholecystectomy. FAMILY HISTORY: Positive for migraines, cancer, gallbladder disease, hypertension, kidney disease and lung disease. SOCIAL HISTORY: Reveals her to be a never smoker. She lives alone. She does not consume ethanol. ALLERGIES: She has no known drug-resistant organisms. ALLERGIES: SHE HAS ALLERGIES TO MUSHROOM EXTRACT, SHELLFISH, SUMATRIPTAN, SIMVASTATIN AND IODINE. HOME MEDICATIONS: Include Wellbutrin 150 mg p.o. daily, soma 350 mg q.i.d., clindamycin, gabapentin 300 mg t.i.d., hydrochlorothiazide/lisinopril, metformin, Singulair, omeprazole, pravastatin, Inderal, ranitidine; ____ medications are on board, not so much for depression, but also for control of her migrans, so this frequency has been variable over the years, but she has never had a long interval time such as this one where she has had an almost daily headache. MEDICATIONS: P.r.n. medications include the ibuprofen and Ultram. She is currently getting Ultram here in the hospital. REVIEW OF SYSTEMS: System review reveals no particular visual obscuration, she does talk about a fullness in her ear, but no real pulsatile tinnitus but more of a ringing sensation is relatively constant. She had fevers, chills, and sweats but was afebrile on admission. She has had no real sore throat, cough, nasal discharge. She has had no pulmonary, cardiovascular abdominal, musculoskeletal, genitourinary, neurologic issues other than the weakness, fatigue and the abdominal pain with occasional diarrhea, as listed. Neurologically, she never had any significant neurologic symptoms with her headaches, there seemed to be the more common migraine type rather than migraine with aura. PHYSICAL EXAMINATION: VITAL SIGNS: Blood pressure is 120/69, respirations were 18, and pulse was 96. She had an O2 saturation 99% and was afebrile at 37 degrees. GENERAL: She was moderately over nourished. HEENT: Otherwise no abnormalities. NECK: Supple. LUNGS: Clear. HEART: Had a regular rhythm. There were no murmurs appreciated. ABDOMEN: Obese but no organomegaly was appreciated. EXTREMITIES: Free of edema. NEUROLOGIC: Today, she is awake, alert, oriented but is quite photophobic. She is in a very dark room where she has been for several days. Her ocular fundi were seen and I see no evidence for papilledema, particularly on the left although the right disc was not that well evaluated. There certainly was no evidence for venous dilatation, I thought I did see venous pulsations on the left. Visual cuadra are full. Ocular movements were normal. Facial motility and strength was normal. Facial sensation was normal. Speech was clear. There was no drift, pronation, tremor, tics or choreiform activity. Reflexes were all hypoactive but present. Toes were down. No Samuel signs were seen. Strength testing was normal. Sensation was intact. There was a little tenderness over the upper cervical region to palpation without any areas of point tenderness and the neck was supple without any meningeal signs. IMAGING DATA: A CAT scan has been done but shows no evidence for mass, lesion, etc. LABORATORY STUDIES: Basic laboratory studies are as recorded on the chart showing improvement of her anemia. IMPRESSION AND PLAN: At this point, treatment is going to be difficult. She is already on quite a number of drugs that we normally use to prevent migraines that has broken through. She is over nourished. I do not see evidence for papilledema and the history really suggests more migraines than anything like pseudotumor cerebri, but nonetheless it would be nice if we could get an MRI on her. Her weight I think would not be a stopper in this, but her overall habitus may prevent her from getting in the scanner. If so, we could probably do it on an open unit on an outpatient basis. I would like to make sure there is no Chiari malformation or other issues that might suggest a kiow grade pseudotumor going on, but frankly doubt it. I am going to start her on Topamax 25 mg twice a day which may not be enough, but it can be built up depending on her tolerance and this woman is already obese, so topamax with its potential to induce weight loww would not be a bad migraine prophylactic agent to add. I am going to ask pain management to take a look at her as well. I am not sure they are going to offer an injection in the upper cervical region, but she should be assesed by them and she may end up being a potential Botox candidate in light of the failure of multiple medications to prevent these migraines over the years. She is certainly not a triptan candidate and is someone who has already suffered the effects from analgesic overuse and some of her headaches are undoubtedly rebound as well. I will check back with her tomorrow. MAJOR
--- NOTE | 2017-10-12 12:25 | DIAGNOSTIC IMAGING REPORT ---
MRI OF THE BRAIN WITHOUT AND WITH IV CONTRAST CLINICAL HISTORY: new onset severe headache COMPARISON STUDY: Noncontrast head CT dated October 11, 2017 TECHNIQUE: MRI of the brain was performed from the vertex to the skull base utilizing various T1 and T2 weighted sequences. Following the IV administration of 16 mL of Gadavist contrast, additional enhanced images were obtained. FINDINGS: Sagittal T1, axial diffusion, proton density and T2 weighted axial, coronal FLAIR, and pre and post axial T1-weighted images were acquired. These were supplemented with post gadolinium coronal T1 weighted images. No intra or extra-axial mass lesions are visualized. Axial diffusion-weighted images reveal no evidence of acute or subacute infarction. There is no evidence of ventricular dilatation. Proton density T2-weighted and FLAIR images reveal no significant intraparenchymal signal abnormalities There are no abnormal flow voids. There is no evidence of pathologic enhancement. IMPRESSION: Normal MRI of the brain Electronically signed by: Michael Malone M.D. 10/12/2017 12:24 PM Dictated Date/Time: 10/12/2017 12:22 PM
[2017-10-12] MEDS: SUCRALFATE 1 GM/10 ML UDC PO SCH ×3 (13:17→20:17)
--- NOTE | 2017-10-12 15:27 | Progress Note ---
Medicine Progress Note Date & Time of Visit: Oct 12, 2017 at 15:16. Subjective 32 yo F with persistent epigastric pain and lightheadedness presented via EMS. She underwent an EGD and was found to have small non-bleeding gastric ulcers in setting of known Ibuprofen 800 TID use for the past two years for migraines and fibromyalgia. While admitted her migraines have become unbearable prolonging her hospital stay and Neurology eval was requested with no success of several abortives. MRI brain was performed and normal. She was started on Topamax and Pain Management was consulted. Pt is tolerating PO but has pretty severe heartburn and gastric irritation despite PPI. Objective Last 8 Hrs Date Time Temp Pulse Resp B/P (MAP) Pulse Ox O2 Delivery O2 Flow Rate FiO2 10/12/17 10:41 Room Air Physical Exam: GEN: obese, in no acute distress, alert and appropriate, lying in a dark room, moves around the bed with ease CARDIO: reg rate, S1/2 heard without m/g/r LUNGS: CTA bilaterally, no crackles, rales or wheezes, good diaphragmatic excursion ABD: soft, TTP in epigastric region-unchanged, non-distended, no guarding, +BS EXTREMITY: RP and DP palpable 2+ bilat, no LE swelling or edema, extremities are warm and well-perfused NEURO: CN 2-12 grossly intact MUSC: ambulatory, no gross focal deficits. SKIN: warm and dry Laboratory Results: 10/10/17 05:25 10/10/17 05:25 Test 10/09/17 22:19 10/09/17 23:15 10/09/17 23:53 10/10/17 05:00 Immature Granulocyte % (Auto) 0.2 % White Blood Count 6.15 K/uL (4.8-10.8) Red Blood Count 3.72 M/uL (4.2-5.4) Hemoglobin 9.1 g/dL (12.0-16.0) Hematocrit 28.9 % (37-47) Mean Corpuscular Volume 77.7 fL (80-100) Mean Corpuscular Hemoglobin 24.5 pg (25-34) Mean Corpuscular Hemoglobin Concent 31.5 g/dl (32-36) Platelet Count 307 K/uL (130-400) Mean Platelet Volume 9.0 fL (7.4-10.4) Neutrophils (%) (Auto) 68.9 % Lymphocytes (%) (Auto) 18.7 % Monocytes (%) (Auto) 8.6 % Eosinophils (%) (Auto) 2.9 % Basophils (%) (Auto) 0.7 % Neutrophils # (Auto) 4.24 K/uL (1.4-6.5) Lymphocytes # (Auto) 1.15 K/uL (1.2-3.4) Monocytes # (Auto) 0.53 K/uL (0.11-0.59) Eosinophils # (Auto) 0.18 K/uL (0-0.5) Basophils # (Auto) 0.04 K/uL (0-0.2) Immature Granulocyte # (Auto) 0.01 K/uL (0.00-0.02) Prothrombin Time 9.5 SECONDS (9.0-12.0) Prothromb Time International Ratio 0.9 (0.9-1.1) Activated Partial Thromboplast Time 22.6 SECONDS (21.0-31.0) Partial Thromboplastin Ratio 0.9 Magnesium Level 2.2 mg/dl (1.8-2.4) Total Bilirubin 0.2 mg/dl (0.2-1) Aspartate Amino Transf (AST/SGOT) 10 U/L (15-37) Alanine Aminotransferase (ALT/SGPT) 11 U/L (12-78) Alkaline Phosphatase 77 U/L (45-117) Total Creatine Kinase 68 U/L (26-192) Troponin I < 0.015 ng/ml (0-0.045) Total Protein 7.2 gm/dl (6.4-8.2) Albumin 3.4 gm/dl (3.4-5.0) Globulin 3.8 gm/dl (2.5-4.0) Albumin/Globulin Ratio 0.9 (0.9-2) Lipase 292 U/L (73-393) Thyroid Stimulating Hormone (TSH) 1.190 uIu/ml (0.300-4.500) Human Chorionic Gonadotropin, Qual NEG (NEG) Salicylates Level 1.8 mg/dl (2.8-20) Acetaminophen Level < 2 ug/ml (10-30) Urine Opiates Screen NEG (NEG) Urine Methadone, Qualitative NEG (NEG) Urine Barbiturates NEG (NEG) Urine Phencyclidine (PCP) Level NEG (NEG) Ur Amphetamine/Methamphetamine NEG (NEG) MDMA (Ecstasy) Screen POS (NEG) Urine Benzodiazepines Screen NEG (NEG) Urine Cocaine Metabolite NEG (NEG) Urine Marijuana (THC) NEG (NEG) Gastric Fluid pH 1 Gastric Fluid Occult Blood POS (NEG) Influenza Type A (RT-PCR) Neg for Influ A (NEG) Influenza Type B (RT-PCR) Neg for Influ B (NEG) Test 10/10/17 05:25 10/10/17 20:50 Red Blood Count 3.64 M/uL (4.2-5.4) Mean Corpuscular Volume 77.2 fL (80-100) Mean Corpuscular Hemoglobin 24.2 pg (25-34) Mean Corpuscular Hemoglobin Concent 31.3 g/dl (32-36) RDW Standard Deviation 46.2 fL (36.4-46.3) RDW Coefficient of Variation 16.2 % (11.5-14.5) Mean Platelet Volume 8.6 fL (7.4-10.4) Anion Gap 5.0 mmol/L (3-11) Est Creatinine Clear Calc Drug Dose 206.7 ml/min Estimated GFR () 134.9 Estimated GFR (Non- 116.4 BUN/Creatinine Ratio 19.6 (10-20) Calcium Level 7.8 mg/dl (8.5-10.1) Iron Level 13 mcg/dl (35-150) Total Iron Binding Capacity 416 mcg/dl (250-450) Transferrin 315 mg/dl (200-360) Transferrin % Saturation 3 % (15-50) Ferritin 2.6 ng/ml (8.0-388.0) Assessment & Plan 32 yo F with persistent epigastric pain and lightheadedness presented via EMS. She underwent an EGD and was found to have small non-bleeding gastric ulcers in setting of known Ibuprofen 800 TID use for the past two years for migraines and fibromyalgia. While admitted her migraines have become unbearable prolonging her hospital stay and Neurology eval was requested with no success of several abortives. MRI brain was performed and normal. She was started on Topamax and Pain Management was consulted. Pt is tolerating PO but has pretty severe heartburn and gastric irritation despite PPI. 1. PUD-likely related to high dose Ibuprofen over last two years. H pylori for stool pending. Per GI cont BID PPI x 6 weeks and then daily. Iron supplementation was started. Starting sulcralfate with existing stomach upset and irritation. 2. Fibromyalgia-cont Wellbutrin and Soma and gabapentin. 3. Migraines-very severe, patient doesn't feel well enough to go home as a result. Neurology was consulted for assistance. Cont Fioricet. Brain MRI performed and normal, Topamax was started. Pain Management consulted for evaluation for potential candidacy for Botox injections. 4. HTN-restarted lis/HCT per outpatient regimen. At goal 5. PCOS-holding metformin while hospitalized. DVT proph-contraindicated, SCDs. Full Code Dispo-likely to home in am DO Nika Collins Hospitalist Consultants: [facility] Current Inpatient Medications: Current Inpatient Medications Medications (Trade) Dose Ordered Sig/Krupa Route Start Time Stop Time Status Last Admin Dose Admin Acetaminophen (Tylenol Tab) 650 mg Q4H PRN PO 10/10/17 03:00 11/09/17 02:59 10/10/17 19:08 650 MG Polyethylene (Miralax Powder Packet) 17 gm DAILY PRN PO 10/10/17 03:00 11/09/17 02:59 Ondansetron HCl (Zofran Inj) 4 mg Q6H PRN IV 10/10/17 03:00 11/09/17 02:59 10/12/17 02:23 4 MG Bupropion HCl (Wellbutrin Tab) 150 mg DAILY PO 10/10/17 09:00 11/09/17 08:59 10/12/17 10:23 150 MG Carisoprodol (Soma Tab) 350 mg QID PO 10/10/17 09:00 11/09/17 08:59 10/12/17 13:17 350 MG Montelukast Sodium (Singulair Tab) 10 mg DAILY PO 10/10/17 09:00 11/09/17 08:59 10/12/17 10:22 10 MG Pravastatin Sodium (Pravachol Tab) 20 mg DAILY PO 10/10/17 09:00 11/09/17 08:59 10/12/17 10:22 20 MG Propranolol HCl (Inderal Tab) 40 mg BID PO 10/10/17 09:00 11/09/17 08:59 10/12/17 10:21 40 MG Tramadol HCl (Ultram Tab) 50 mg Q8H PRN PO 10/10/17 03:15 11/09/17 03:14 10/12/17 10:47 50 MG Ranitidine HCl (zANTac TAB) 300 mg DAILY PO 10/10/17 09:00 11/09/17 08:59 10/12/17 08:24 300 MG Gabapentin (Neurontin Cap) 400 mg TID PO 10/10/17 09:00 11/09/17 08:59 10/12/17 13:17 400 MG Miscellaneous (Iv Fluids Completed) 1 ea PRN PRN N/A 10/10/17 04:15 10/10/18 04:14 Miscellaneous (Iv Fluids Completed) 1 ea PRN PRN N/A 10/10/17 04:15 10/10/18 04:14 Ferrous Sulfate (Feosol Tab) 325 mg TIDM PO 10/10/17 08:30 11/09/17 08:29 10/12/17 13:17 325 MG Acetaminophen/ Butalbital/ Caffeine (Fioricet Tab) 1 tab Q4H PRN PO 10/11/17 08:30 11/10/17 08:29 10/12/17 13:25 1 TAB HCTZ/Lisinopril (Prinzide 10-12.5MG Tab) 1 tab DAILY PO 10/11/17 11:30 11/10/17 11:29 10/12/17 10:23 1 TAB Pantoprazole Sodium (Protonix Tab) 40 mg BID PO 10/11/17 21:00 10/15/17 20:59 10/12/17 08:24 40 MG Topiramate (Topamax Tab) 25 mg BID PO 10/12/17 21:00 11/11/17 20:59 Sucralfate (Carafate Susp) 1 gm QID PO 10/12/17 13:00 11/11/17 12:59 10/12/17 13:17 1 GM
[2017-10-12] MEDS ORDERED: ACETAMINOPHEN 500 MG TAB PO ONE (18:58)
[2017-10-12] MEDS ORDERED: NURSING VERBAL MED ORDER ONE (19:00)
[2017-10-12 20:08] LABS: HEMATOCRIT 28.7 % (37-47); HEMOGLOBIN 8.8 g/dL (12.0-16.0)
[2017-10-12] MEDS: ALPRAZOLAM 0.5 MG TAB PO PRN (20:16)
[2017-10-12] MEDS: TOPIRAMATE 25 MG TAB PO SCH (20:16)
[2017-10-12] MEDS: ACETAMINOPHEN 325 MG TAB PO PRN (23:22)
[2017-10-13 05:37] LABS: HEMATOCRIT 32.6 % (37-47); HEMOGLOBIN 9.8 g/dL (12.0-16.0); MEAN CELL VOLUME 79.5 fL (80-100); MEAN CORPUSCULAR HEMOGLOBIN 23.9 pg (25-34); MEAN CORPUSCULAR HGB CONC 30.1 g/dl (32-36); MEAN PLATELET VOLUME 9.1 fL (7.4-10.4); PLATELET COUNT 363 K/uL (130-400); RED CELL DISTRIBUTION WIDTH SD 46.3 fL (36.4-46.3); WHITE BLOOD COUNT 5.34 K/uL (4.8-10.8)
[2017-10-13] MEDS: ALPRAZOLAM 0.5 MG TAB PO PRN ×2 (06:14→17:20)
[2017-10-13 06:17] LABS: CALCIUM 8.1 mg/dl (8.5-10.1); CREATININE 0.82 mg/dl (0.60-1.20); POTASSIUM 4.1 mmol/L (3.5-5.1)
[2017-10-13 07:30] VITALS: O2SAT 99
[2017-10-13 08:03] VITALS: BP_SYST 120; BP_SYST 128; BP_SYST 134; BP_DIAS 79; BP_DIAS 80; BP_DIAS 84; PULSE 66; TEMP 36.5; O2SAT 100
[2017-10-13 08:12] VITALS: O2SAT 100
[2017-10-13] MEDS: TOPIRAMATE 25 MG TAB PO SCH (08:46)
[2017-10-13] MEDS: LISINOPRIL/HCTZ 10/12.5MG TAB PO SCH (08:46)
[2017-10-13] MEDS: PRAVASTATIN SOD 20 MG TAB PO SCH (08:46)
[2017-10-13] MEDS: FERROUS SULFATE 325 MG TAB PO SCH ×2 (08:46→12:41)
[2017-10-13] MEDS: RANITIDINE HCL 150 MG TAB PO SCH (08:46)
[2017-10-13] MEDS: SUCRALFATE 1 GM/10 ML UDC PO SCH ×3 (08:46→16:45)
[2017-10-13] MEDS: PROPRANOLOL HCL 20 MG TAB PO SCH (08:46)
[2017-10-13] MEDS: PANTOprazole SOD 40 MG TAB PO SCH (08:47)
[2017-10-13] MEDS: MONTELUKAST SOD 10 MG TAB PO SCH (08:47)
[2017-10-13] MEDS: CARISOPRODOL 350 MG TAB PO SCH (08:47)
[2017-10-13] MEDS: GABAPENTIN 400 MG CAP PO SCH ×2 (08:47→13:52)
[2017-10-13] MEDS: ACETAMINOPHEN 325 MG TAB PO PRN (08:54)
[2017-10-13] MEDS: ONDANSETRON INJ 2 MG/ML 2 ML VIAL IV PRN ×2 (09:50→16:51)
--- NOTE | 2017-10-13 10:10 | Pain Management Consultation ---
Pain Management Consultation Date of Consultation Oct 13, 2017. Reason for Consultation Funmi Erazo is a 32 -year-old female who is admitted to [facility] with diagnosis of peptic ulcer disease, possibly NSAID induced gastritis. She also has history of chronic migraine headaches since early age, fibromyalgia, hypertension, polycystic ovary syndrome as well as obesity. Consultation was requested to consider Botox therapy or interventional therapy for her chronic migraine headaches. Patient reports experiencing chronic migraine headaches at an early age as a teenager but reports increased intensity and frequency as well as longer duration of symptoms over the last several years. She reports experiencing up to 5 episodes of headaches per week each lasting 12-14 hours. Pain is located in predominantly in the proximal cervical spine and radiates to occipital and temporal regions of the head. She reports experiencing occasional tinnitus in the left ear and experiencing "black spots" with her vision but does not experience any specific prodromes, increase lacrimation, or rhinorrhea with her headaches. Symptoms are characterized as "tightness" of the neck and the occipital/temporal regions. She also reports feeling a sensation of "creaking" of the right-sided joints of her neck when she rotates her head associated with her headaches. Factors that exacerbate patient's symptoms include increased symptoms during her menses. This morning she reports increased symptoms as she is starting her menstrual cycle and she reports that she is not receiving her control medications as an inpatient. Factors that alleviate patient's symptoms include use of medications including opiate analgesics. Symptoms are rated as 8/10 on visual analog scale when severe and 4/10 when minimal. Current treatments include use of tramadol, carisoprodol, anxiolytic medications. Previous treatments include Imitrex and antimigraine medications with varying efficacy. Previous evaluations include neurological evaluation, MRI of the brain and CT of the head during this admission. Reports no neurological symptoms associated with the symptoms. She denies any bowel bladder incontinence, saddle anesthesia, numbness, weakness or any other neurological symptoms. Comorbid medical conditions include history of anxiety and depression, fibromyalgia with myofascial pain, gastritis related due to continuous and chronic use of anti-inflammatory agents. Pain Location 1 - Right-sided occipital and proximal cervical spine pain 2 - Left-sided occipital and cervical spine pain. 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 Allergies Coded Allergies: Mushroom Extract Complex (Verified Allergy, Severe, EDEMA OF FACE, LIPS, TONGUE, 10/09/17) Shellfish (Verified Allergy, Severe, EDEMA OF FACE, LIPS, TONGUE, 10/09/17) Sumatriptan (Verified Allergy, Severe, AIRWAY EDEMA, 10/09/17) Simvastatin (Verified Allergy, Mild, WORSENING OF MUSCLE PAIN, 10/09/17) Iodine (Verified Allergy, Unknown, RASH, 10/09/17) PER ARIANA IN CT, PT IS ALLERGIC TO TOPICAL IODINE, SO OPTIRAY IS OK FOR THIS PT. Mushroom (Verified Allergy, Unknown, SHORTNESS OF BREATH, 10/09/17) Medications Current Inpatient Medications Medications (Trade) Dose Ordered Sig/Krupa Route Start Time Stop Time Status Last Admin Dose Admin Acetaminophen (Tylenol Tab) 650 mg Q4H PRN PO 10/10/17 03:00 11/09/17 02:59 10/12/17 23:22 650 MG Polyethylene (Miralax Powder Packet) 17 gm DAILY PRN PO 10/10/17 03:00 11/09/17 02:59 Ondansetron HCl (Zofran Inj) 4 mg Q6H PRN IV 10/10/17 03:00 11/09/17 02:59 10/12/17 19:10 4 MG Bupropion HCl (Wellbutrin Tab) 150 mg DAILY PO 10/10/17 09:00 11/09/17 08:59 10/12/17 10:23 150 MG Carisoprodol (Soma Tab) 350 mg QID PO 10/10/17 09:00 11/09/17 08:59 10/12/17 20:16 350 MG Montelukast Sodium (Singulair Tab) 10 mg DAILY PO 10/10/17 09:00 11/09/17 08:59 10/12/17 10:22 10 MG Pravastatin Sodium (Pravachol Tab) 20 mg DAILY PO 10/10/17 09:00 11/09/17 08:59 10/12/17 10:22 20 MG Propranolol HCl (Inderal Tab) 40 mg BID PO 10/10/17 09:00 11/09/17 08:59 10/12/17 10:21 40 MG Tramadol HCl (Ultram Tab) 50 mg Q8H PRN PO 10/10/17 03:15 11/09/17 03:14 Future Hold 10/12/17 10:47 50 MG Ranitidine HCl (zANTac TAB) 300 mg DAILY PO 10/10/17 09:00 11/09/17 08:59 10/12/17 08:24 300 MG Gabapentin (Neurontin Cap) 400 mg TID PO 10/10/17 09:00 11/09/17 08:59 10/12/17 20:16 400 MG Miscellaneous (Iv Fluids Completed) 1 ea PRN PRN N/A 10/10/17 04:15 10/10/18 04:14 Miscellaneous (Iv Fluids Completed) 1 ea PRN PRN N/A 10/10/17 04:15 10/10/18 04:14 Ferrous Sulfate (Feosol Tab) 325 mg TIDM PO 10/10/17 08:30 11/09/17 08:29 10/12/17 17:20 325 MG Acetaminophen/ Butalbital/ Caffeine (Fioricet Tab) 1 tab Q4H PRN PO 10/11/17 08:30 11/10/17 08:29 Future Hold 10/12/17 17:21 1 TAB HCTZ/Lisinopril (Prinzide 10-12.5MG Tab) 1 tab DAILY PO 10/11/17 11:30 11/10/17 11:29 10/12/17 10:23 1 TAB Pantoprazole Sodium (Protonix Tab) 40 mg BID PO 10/11/17 21:00 10/15/17 20:59 10/12/17 20:16 40 MG Topiramate (Topamax Tab) 25 mg BID PO 10/12/17 21:00 11/11/17 20:59 10/12/17 20:16 25 MG Sucralfate (Carafate Susp) 1 gm QID PO 10/12/17 13:00 11/11/17 12:59 10/12/17 20:17 1 GM Alprazolam (Xanax Tab) 0.5 mg Q8H PRN PO 10/12/17 19:45 11/11/17 19:44 10/13/17 06:14 0.5 MG Review of Systems unexplained weight loss, or constitutional symptoms. Otherwise, 6 point review of system has been reported to be negative. Acute issues as noted above. Physical Exam Height & Weight: Height 5 feet, 9.00 inches. Weight 164.900 (Kilograms) 363 (Pounds) Last Vital Signs Documentation Date Time Temp Pulse Resp B/P (MAP) Pulse Ox O2 Delivery O2 Flow Rate FiO2 10/12/17 23:35 36.6 60 18 112/75 (87) 99 Room Air Exam: GENERAL: Funmi Erazo is awake, alert and oriented. Appears well developed. She is in no distress at the present time. Appears mildly deconditioned. BMI is 53.7 kg/m2. PSYCHIATRIC: Mood appears to be normal. Demonstrates normal affect. Short- term memory is intact. Long-term memory is intact. Judgment is intact. EYES, EARS, NOSE AND THROAT: Pupils are reactive to light and accommodation. Conjunctiva are pink. Nasal mucosa demonstrates no lesions. Oral mucosa demonstrates no lesions or masses. NECK: No lymphadenopathy is noted. Trachea midline. No thyromegaly noted. VASCULAR: Peripheral pulses are symmetrical in the upper extremities. No distal edema noted. MUSCULOSKELETAL: Inspection of the cervical spine demonstrates loss of lumbar lordosis. Range of motion of the cervical spine in all planes is decreased due to myofascial pain. No lesions are noted in the cervical spine region. Palpation of the spinous processes intraspinal ligaments demonstrates no pain. Provocative testing of the facet joints produces moderate amount of pain more so on the right side in the proximal cervical spine facet joints. Moderate diffuse myofascial tenderness is noted in the paraspinous muscles. No trigger points identifiable in the paraspinous musculature. Inspection of major joints of the upper demonstrates no gross deformities or edema. Active and passive range of motion of upper extremity is unrestricted SKIN: Appears over the face and neck unremarkable, without any lesions NEUROLOGICAL: Cranial nerves II-XII demonstrates no deficits. Sensory exam demonstrates intact sensation to light touch without deficits in the upper extremities. Motor exam demonstrates symmetrical strength, including the intrinsic muscles of the hand, without deficit. No pathologic reflexes are noted in the upper extremities. Spurling's maneuver is negative. No pathologic reflexes are noted. Laboratory Laboratory Results (Last CBC): 10/13/17 05:16 Imaging MRI: enhanced, reports reviewed MRI Findings Brain MRI: Normal per report CT: enhanced CT Findings CT of the head: No intracranial abnormalities. Past Records Previous Records: personally reviewed by me [facility] Drug Monitoring Program Search Results: patient reviewed within database Drug Monitoring Findings: Receiving Tramadol, Carisoprodol and intermittent hydrocodone for several providers. Opioid Risk Assessment Risk assessment performed, moderate risk identified Assessment 1. Migraine headaches by history. 2. Fibromyalgia by history with myofascial pain in the cervical spine musculature. 3. Cervical facette pain. 4. Polycystic ovary syndrome. 5. Hypertension. 6. Anxiety/Depression. 7. Obesity. Recommendations 1. MS. Erazo was offered Botox therapy for her chronic migraine head aches. She was explained that this was an out patient process and would be done at [facility]. Risks, benefits, realistic expectations were discussed. Her questions answered. 2. Diagnostic cervical medial branches were offered. If the diagnostic block are efficacious, she could then be a candidate for radiofrequency ablation of the medial branches for longer-term relief. 3. Would not recommend chronic use of opioids due to patient's risk assessment and comorbid conditions. During this visit, patient had several times asked for "something" for analgesia including opioids. She was advised that the current guidelines do not recommend use of opioids for migraines. 4. Would not recommend carisoprodol long-term as a muscle relaxant since it is metabolized to meprobamate, and sedative anxiolytic that might have drug interactions with other [employer] depressant medications the patient is currently taking. Recommend switching to baclofen and short-term use of short-acting tapentadol as an inpatient. 5. Recommend screening and evaluation of sleep apnea which can exacerbate the myofascial symptoms and chronic pain symptoms. This can be performed as an outpatient. 6. Recommend, if we are not done so, patient metabolic evaluation including evaluation for Lyme's disease, thyroid function tests, vitamin D levels. 7. If patient wishes to pursue Botox therapy and cervical medial branch blocks , she can be referred to [facility] pain management clinic by her primary care provider.
[2017-10-13] MEDS ORDERED: BACLOFEN 10 MG TAB PO PRN (10:30)
[2017-10-13] MEDS: TAPENTADOL HCL 50 MG TAB PO PRN ×2 (12:46→16:51)
--- NOTE | 2017-10-13 15:28 | Neurology Progress Notes ---
Neurology Progress Note Date of Service Oct 13, 2017. Joaquín Choudhary is a 32 yo female who presented to the ER via ambulance for complaints of weakness, dizziness, lightheadedness, and MOBLEY that she felt today and became concerned about. She saw her PCP 1 week prior to admission she was complaining of low grade fever, abdominal pain, fatigue, and dizziness; she had blood work and went home and slept. She states she then was called about her hemoglobin being low and was informed that if she felt worse she should go to the hospital and she then called EMS. She was seen by neurology and started on Topamax 25 mg BID which she thinks has helped the headaches. Pain mgt saw her and did not do any injections but did recommend some medications changes they felt would help. denies CP, SOB, abdominal pain, weakness, numbness tingling +abdominal pain due to start of menses. She is up walking in the room to the bathroom with no difficulties Objective Date Time Temp Pulse Resp B/P (MAP) Pulse Ox O2 Delivery O2 Flow Rate FiO2 10/13/17 08:12 100 Room Air 10/13/17 08:03 36.5 66 18 128/80 (96) 100 Room Air 120/79 (93) 134/84 (101) 10/13/17 07:30 99 Room Air 10/12/17 23:35 36.6 60 18 112/75 (87) 99 Room Air 10/12/17 23:10 Room Air 10/12/17 20:14 68 94/57 (69) 10/12/17 18:58 36.8 80 18 117/76 (90) 100 Room Air 10/12/17 15:30 Room Air Last 24 Hours Test 10/12/17 19:59 10/13/17 05:16 Hemoglobin 8.8 g/dL 9.8 g/dL Hematocrit 28.7 % 32.6 % White Blood Count 5.34 K/uL Red Blood Count 4.10 M/uL Mean Corpuscular Volume 79.5 fL Mean Corpuscular Hemoglobin 23.9 pg Mean Corpuscular Hemoglobin Concent 30.1 g/dl RDW Standard Deviation 46.3 fL RDW Coefficient of Variation 16.0 % Platelet Count 363 K/uL Mean Platelet Volume 9.1 fL Sodium Level 135 mmol/L Potassium Level 4.1 mmol/L Chloride Level 104 mmol/L Carbon Dioxide Level 24 mmol/L Anion Gap 7.0 mmol/L Blood Urea Nitrogen 14 mg/dl Creatinine 0.82 mg/dl Est Creatinine Clear Calc Drug Dose 161.3 ml/min Estimated GFR () 108.2 Estimated GFR (Non- 93.4 BUN/Creatinine Ratio 16.7 Random Glucose 91 mg/dl Calcium Level 8.1 mg/dl Magnesium Level 2.9 mg/dl Imaging: MRI brain combo- Normal MRI of the brain Exam: Physical Exam: Constitutional: appearance nourished, healthy obese Ears, Nose, Mouth and Throat: mucous membranes moist, no injection and skin normal, eyes normal Cardiovascular: normal S-1 and S-2 and regular rate and rhythm Respiratory: clear to auscultation (CTA) and no rales, rhonchi or wheeze Musculoskeletal: non pitting peripheral edema Skin: no stigmata of neurocutaneous disease noted and normal and intact Eyes: extraocular muscles intact (EOMI) and pupils equal, round and reactive to light (PERRL) NEUROLOGIC EXAMINATION: Mental status: Alert and interactive Oriented to full date and location Oriented to person Speech fluent with no evidence of aphasia Cranial Nerves smile eye brow raise symmetric Coordination: finger to nose no bi pass Gait/Stance: Posture sitting up in bed repositioning without aid Motor: Negative for pronator drift of out stretched arms with eyes closed. 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 Current Inpatient Medications Medications (Trade) Dose Ordered Sig/Krupa Route Start Time Stop Time Status Last Admin Dose Admin Acetaminophen (Tylenol Tab) 650 mg Q4H PRN PO 10/10/17 03:00 11/09/17 02:59 10/13/17 08:54 650 MG Polyethylene (Miralax Powder Packet) 17 gm DAILY PRN PO 10/10/17 03:00 11/09/17 02:59 Ondansetron HCl (Zofran Inj) 4 mg Q6H PRN IV 10/10/17 03:00 11/09/17 02:59 10/13/17 09:50 4 MG Bupropion HCl (Wellbutrin Tab) 150 mg DAILY PO 10/10/17 09:00 11/09/17 08:59 10/13/17 08:46 150 MG Montelukast Sodium (Singulair Tab) 10 mg DAILY PO 10/10/17 09:00 11/09/17 08:59 10/13/17 08:47 10 MG Pravastatin Sodium (Pravachol Tab) 20 mg DAILY PO 10/10/17 09:00 11/09/17 08:59 10/13/17 08:46 20 MG Propranolol HCl (Inderal Tab) 40 mg BID PO 10/10/17 09:00 11/09/17 08:59 10/13/17 08:46 40 MG Ranitidine HCl (zANTac TAB) 300 mg DAILY PO 10/10/17 09:00 11/09/17 08:59 10/13/17 08:46 300 MG Gabapentin (Neurontin Cap) 400 mg TID PO 10/10/17 09:00 11/09/17 08:59 10/13/17 13:52 400 MG Miscellaneous (Iv Fluids Completed) 1 ea PRN PRN N/A 10/10/17 04:15 10/10/18 04:14 Miscellaneous (Iv Fluids Completed) 1 ea PRN PRN N/A 10/10/17 04:15 10/10/18 04:14 Ferrous Sulfate (Feosol Tab) 325 mg TIDM PO 10/10/17 08:30 11/09/17 08:29 10/13/17 12:41 325 MG Acetaminophen/ Butalbital/ Caffeine (Fioricet Tab) 1 tab Q4H PRN PO 10/11/17 08:30 11/10/17 08:29 Future Hold 10/12/17 17:21 1 TAB HCTZ/Lisinopril (Prinzide 10-12.5MG Tab) 1 tab DAILY PO 10/11/17 11:30 11/10/17 11:29 10/13/17 08:46 1 TAB Pantoprazole Sodium (Protonix Tab) 40 mg BID PO 10/11/17 21:00 10/15/17 20:59 10/13/17 08:47 40 MG Topiramate (Topamax Tab) 25 mg BID PO 10/12/17 21:00 11/11/17 20:59 10/13/17 08:46 25 MG Sucralfate (Carafate Susp) 1 gm QID PO 10/12/17 13:00 11/11/17 12:59 10/13/17 12:41 1 GM Alprazolam (Xanax Tab) 0.5 mg Q8H PRN PO 10/12/17 19:45 11/11/17 19:44 10/13/17 06:14 0.5 MG Baclofen (Lioresal Tab) 5 mg TID PRN PO 10/13/17 10:30 11/12/17 10:29 Tapentadol (Nucynta Tab) 50 mg Q4H PRN PO 10/13/17 10:15 11/12/17 10:14 10/13/17 12:46 50 MG Impression 32 year old female with multiple medical complaints new onset headache Plan 1. pain mgt - recommended medication changes at this point no injections she will see them as out patient 2. topamax 25 mg BID is helping can increase after one week to 50 mg BID if needed 3. discussed keeping well hydrated and can cause some fog of thinking. she has not history of kidney stones but there is a strong family history discussed keep well hydrated she is will to try 4. will need follow up with PCP for medical management 5. ok from neurology stand point to discharge neurology out patient follow up in 2-[address] Jose Manuel Roy or Tori Cole PAC schedule I have seen and discussed above patient with Dr Jose Manuel Roy, neurology Patient much improved up in medrano headache down significantly no photophobia will need follow up with neurology and pain management and may actually be a botox candidate for now continue low dose topamax and her other meds Neurology will sign off at this point and follow on outpatient basis in about three to four weeks post discharge Jose Manuel Roy MD
[2017-10-13 15:59] VITALS: BP 110/61; PULSE 75; TEMP 37; O2SAT 95
[2017-10-13] MEDS ORDERED: FRRS300 PO (17:10)
[2017-10-13] MEDS ORDERED: TPM25 PO (17:10)
[2017-10-13] MEDS ORDERED: LRS10 PO (17:10)
[2017-10-13] MEDS ORDERED: OMEP40CA41 PO (17:10)
--- NOTE | 2017-10-13 17:30 | Discharge Summary ---
Discharge Summary Date of Service Oct 13, 2017. Discharge Summary Admission Date: Oct 10, 2017 at 14:38 Discharge Date: Oct 13, 2017 Discharge Disposition: Home Principal Diagnosis: 1. PUD likely related to high-dose ibuprofen chronically 2. Fibromyalgia 3. Migraines 4. Hypertension 5. PCO S 6. Obesity Procedures: EGD Vaccinations: None. Consultations: GI-Dr. Jude Del Valle Neuro- Dr. Jose Manuel Roy Pending Studies/Follow-Up: see instructions below Medication Reconciliation New Medications: Ondansetron Hcl (Zofran) 4 Mg Tab 4 MG PO Q6H PRN for nausea/vomiting for 20 Days, #20 TAB Baclofen (Baclofen) 10 Mg Tab 5 MG PO TID PRN for spasms for 20 Days, #30 TAB Ferrous Sulfate (Ferrous Sulfate) 325 Mg Tab 325 MG PO TIDM for 30 Days, #90 TAB Topiramate (Topiramate) 25 Mg Tab 25 MG PO BID for 30 Days, #60 TAB Changed Medications: Omeprazole (Prilosec) 40 Mg Cap 40 MG PO BID for 30 Days, #60 CAP (Changed from: DAILY) Continued Medications: Bupropion (Wellbutrin) 75 Mg Tab 150 MG PO DAILY Clindamycin Phosphate (Topical (Clindamycin Phosphate) 1 % Gel 1 APPLN TOP BID Gabapentin (Neurontin) 300 Mg Cap 300 MG PO TID Hctz/Lisinopril (Lisinopril/Hctz 10/12.5 Mg) 1 Ea Tab 1 TAB PO DAILY Metformin Hcl (Glucophage) 1,000 Mg Tab 1000 MG PO DAILY Montelukast Sodium (Singulair) 10 Mg Tab 10 MG PO DAILY Pravastatin (Pravachol ) 20 Mg Tab 20 MG PO DAILY Propranolol (Inderal) 20 Mg Tab 40 MG PO BID Ranitidine Hcl (Zantac) 300 Mg Tab 300 MG PO DAILY Tramadol (Ultram) 50 Mg Tab 50 MG PO Q8H PRN for Pain Discontinued Medications: Carisoprodol (Soma) 350 Mg Tab 350 MG PO QID Ibuprofen (Motrin) 800 Mg Tab 800 MG PO Q8H PRN for Pain Admission Information HPI (per Admitting provider): Patient is a 32 yo female who presented to the ER via ambulance for complaints of weakness, dizziness, lightheadedness, and MOBLEY that she felt today and became concerned about. The patient reports she was seen by her PCP yesterday for a 1 week hx of low grade fever, abdominal pain, fatigue, and dizziness; she had blood work and went home and slept. She states she then was called about her hemoglobin being low and was informed that if she felt worse she should go to the hospital and she then called EMS. She denies any melena or hematochezia. She reports taking ibuprofen 800 mg TID for fibromyalgia and related pain. She also states that she takes PPI and H2 caitlin and that her omprazole was increased recently. She reports symptoms of heartburn/reflux even on medications. She also reports having small caliber stool and intermittent diarrhea but no constipation. She reports having near syncopal episodes and felt the corners of her vision go dark but denies any actual syncope or loss of consciousness. No recent falls or trauma. Physical Exam (per Admitting): General Appearance: WD/WN, no apparent distress Head: normocephalic, atraumatic Eyes: PERRL, EOMI, sclerae normal (conjunctivae clear) ENT: hearing grossly normal Neck: supple, no JVD, trachea midline Respiratory/Chest: chest non-tender, lungs clear, normal breath sounds, no respiratory distress, no accessory muscle use Cardiovascular: regular rate, rhythm, no edema, no gallop, no JVD, no murmur Abdomen/GI: normal bowel sounds, soft, no organomegaly, + tenderness ( epigastric) Back: normal inspection, no CVA tenderness Extremities/Musculoskelatal: normal inspection, normal capillary refill, no pedal edema Neurologic/Psych: no motor/sensory deficits, alert, normal mood/affect, oriented x 3 Skin: normal color, warm/dry, no rash Hospital Course 32 yo F with persistent epigastric pain and lightheadedness presented via EMS. She underwent an EGD and was found to have small non-bleeding gastric ulcers in setting of known Ibuprofen 800 TID use for the past two years for migraines and fibromyalgia. While admitted her migraines have become unbearable prolonging her hospital stay and Neurology eval was requested with no success of several abortives. MRI brain was performed and normal. She was started on Topamax and Pain Management was consulted. Soma was discontinued and Baclofen was started for muscle spasms. Outpatient Botox therapy was recommended in the Pain clinc. Topamax improved her headache and by day of discharge she was tolerating PO, and ambulating and mentating at baseline. Physical exam revealed hemodynamica stability and was significant only for some abdominal discomfort that was improved since admission. She was discharged in stable condition on PPI therapy. Of note, H pylori was checked and negative. Total time spent on discharge = 60 minutes This includes examination of the patient, discharge planning, medication reconciliation, and communication with other providers. Discharge Instructions [address] [address] Discharge Medical Patient Name: Funmi Erazo Unit Number: [id number] Date of : 1985 Patient Status: Admitted Inpatient Attending Doctor: Alaina Hogan DO DI: Medical v4 Discharge Instructions Date of Service Oct 13, 2017. Admission Reason for Admission: Anemia, Weakness Discharge Discharge Diagnosis / Problem: PUD, Fibromyalgia, Migraines Discharge Goals Goal(s): Decrease discomfort, Prevent Disease Progression Activity Recommendations Activity Limitations: per Instructions/Follow-up section . Instructions / Follow-Up Instructions / Follow-Up Please take all new medications as instructed. You will need to stay on the OMEPRAZOLE twice daily for at least 6 weeks and then once daily. You have no food or diet restrictions, and there is no need to follow-up with the Gastroenterology team in the office at this time. You H pylori screening was negative. Regarding your migraines and pain, you were put on the Topamax twice daily to take as scheduled. You will need to follow-up with Dr. Jose Manuel Roy or Tori Cole PA-C in the [facility] clinic in 2-3 weeks. If your headaches are not controlled in one week it is fine to increase to 50mg twice daily of the Topamax. You were placed on Baclofen which is a muscle relaxer to control spasms as needed. You will need a referral to see Dr. Binh Astorga in the office ([facility]) for Botox injections. Please call their office as an outpatient to schedule. As a result of medication interactions it is not advised that you continue SOMA. As a result of your ulcerations, it is not advised that you use NSAIDs such as Ibuprofen or medications like it regularly. 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 This should be further evaluated by your PCP in follow-up. You have a follow-up appointment with Dr. Jimenez on , 10/16 @ 11:05am for followup from this hospitalization. It has been recommended by the Pain Management physician to consider an outpatient sleep study to screen for obstructive sleep apnea, as well as screenings for Lyme disease and vitamin D levels. Please discuss this further with Dr. Jimenez on follow-up. It was a pleasure taking care of you! Call if you have any questions or problems. You can reach a [facility] hospitalist on duty at 24 hours a day by calling [phone]. Take care of yourself. Alaina Hogan, [place] Hospitalist Current Hospital Diet Patient's current hospital diet: AHA Diet (Heart Healthy) Discharge Diet Recommended Diet: AHA Diet (Heart Healthy) Procedures Procedures Performed: EGD Pending Studies Studies pending at discharge: no Medical Emergencies . Who to Call and When: Medical Emergencies: If at any time you feel your situation is an emergency, please call 911 immediately. . Non-Emergent Contact Non-Emergency issues call your: Primary Care Provider . . "Provider Documentation" section prepared by Alaina Hogan. . VTE Core Measure Inpt VTE Proph given/why not?: SCD's Additional Copies To Radha Jimenez M.D.
[2017-10-13 17:33] VITALS: BP 110/61; PULSE 75; TEMP 37; O2SAT 95
[2017-10-13] MEDS ORDERED: ONDA4TAB65 PO (17:44)
== END 2017-10-13 17:30 | disposition home or self-care (01) | DRG 378 ==
LOC: EDBD 21:55 → C.EDB 21:58 → C.MSW 10-10 03:00 → ENRESERV 10-10 03:19 → OBSVTOIN 10-10 14:38
PROVIDERS: ADMIT Internal Medicine; ATTEND Hospitalist
PROC: 0DJ08ZZ Inspection of Upper Intestinal Tract, Via Natural or Artificial Opening Endoscopic (ICD-10-PCS; principal; 2017-10-10 11:52)
DX: K27.4 Chronic or unspecified peptic ulcer, site unspecified, with hemorrhage (principal); Z68.43 Body mass index [BMI] 50.0-59.9, adult; T39.315A Adverse effect of propionic acid derivatives, initial encounter; D50.9 Iron deficiency anemia, unspecified; R55 Syncope and collapse; K21.9 Gastro-esophageal reflux disease without esophagitis; E66.01 Morbid (severe) obesity due to excess calories; I10 Essential (primary) hypertension; E78.5 Hyperlipidemia, unspecified; E28.2 Polycystic ovarian syndrome; F32.9 Major depressive disorder, single episode, unspecified; F41.9 Anxiety disorder, unspecified; M79.7 Fibromyalgia; Z79.84 Long term (current) use of oral hypoglycemic drugs; Z79.899 Other long term (current) drug therapy; Z91.013 Allergy to seafood; Z88.8 Allergy status to other drugs, medicaments and biological substances

== ENCOUNTER 2017-10-19 01:12 | Emergency (ER) | payer OTHER ==
[~2017-10-19] VITALS: Ht 175.3 cm; Wt 163.0 kg
[~2017-10-19 01:12] MED LIST changes: -CARI350T28 PO; +FRRS300 PO; -IBUP-1428 PO; +LRS10 PO; +OMEP40CA41 PO; +ONDA4TAB65 PO; -PRLSR20 PO; +TPM25 PO
[2017-10-19 01:19] VITALS: TEMP 36.7; Ht 175.3 cm; Wt 163.0 kg
[2017-10-19] MEDS ORDERED: ONDANSETRON INJ 2 MG/ML 2 ML VIAL IV STA (01:39)
[2017-10-19] MEDS ORDERED: SODIUM CHLORIDE 0.9% 500ML 500 ML IV STA (01:39)
--- NOTE | 2017-10-19 01:44 | EMERGENCY ROOM VISIT NOTE ---
History Report prepared by Chery: Beverley Carbajal Under the Supervision of: Dr. Kristofer Jacob M.D. First contact with patient: 01:32 Chief Complaint: OTHER COMPLAINT Stated Complaint: ANEMIA,ULCERS,LIGHTHEADED History of Present Illness The patient is a 32 year old female who presents to the Emergency Room with complaints of persistent weakness that started a few hours ago. The patient rates her discomfort a 7/10 in severity. The patient was in the ED last week. She notes she can't seem to focus and feels out of it. She states if she lays down she seems to have a "sinking" feeling and can't get up. She has a history of stomach ulcers. She states she is on iron because she is anemic. The patient notes she has nausea and abdominal pain. She denies any vomiting, shortness of breath, recent head injuries, or falls. She reports she has been drinking regularly but has not been very hungry. Source of History: patient Onset: a few hours ago Position: other (global) Symptom Intensity: 7/10 Timing: other (persistent) Associated Symptoms: No SOB, No vomiting Review of Systems See HPI for pertinent positives & negatives. A total of 10 systems reviewed and were otherwise negative. Past Medical & Surgical Medical Problems: (1) Abdominal cramps (2) Abdominal muscle strain (3) Abdominal pain (4) Abdominal pain (5) Abdominal pain (6) Acute Pancreatitis (7) Acute Sinusitis Nos (8) Anxiety (9) Bilateral leg pain (10) Calf pain (11) Cervical adenopathy (12) Chest pain (13) Contusion, multiple sites (14) Epigastric pain (15) Fall (16) Fall down stairs (17) Gastroesophageal reflux disease (18) Headache (19) Headache (20) History of - hypertension (21) Hypokalemia (22) Intrauterine device (IUD) migration (23) Localized swelling of both lower legs (24) Medication reaction (25) Migraine Unspecified W/O Intractable Migraine (26) Nausea & vomiting (27) Nausea and vomiting (28) Neck pain (29) Neck pain (30) Non-cardiac chest pain (31) Ovarian cyst (32) Pain with swallowing (33) Pelvic pain (34) Peptic ulcer (35) Polycystic Ovaries (36) Pre-syncope (37) Pure Hypercholesterolem (38) Pyelonephritis (39) Right ovarian cyst (40) Sore throat (41) Squeezing chest pain (42) URI (upper respiratory infection) (43) Urin Tract Infection Nos (44) Urinary tract infection (45) Weakness (46) Wheezing Surgical Problems: (1) Cholecystectomy Family History Cancer Diabetes mellitus Gallbladder disease Hypertension Kidney disease Kidney stones Lung disease Social History Smoking Status: Never Smoker Alcohol Use: none Drug Use: none Marital Status: single Housing Status: lives with significant other Occupation Status: employed Current/Historical Medications Scheduled Bupropion (Wellbutrin), 150 MG PO DAILY Clindamycin Phosphate (Topical (Clindamycin Phosphate), 1 APPLN TOP BID Ferrous Sulfate (Ferrous Sulfate), 325 MG PO TIDM Gabapentin (Neurontin), 300 MG PO TID Hctz/Lisinopril (Lisinopril/Hctz 10/12.5 Mg), 1 TAB PO DAILY Metformin Hcl (Glucophage), 1,000 MG PO DAILY Montelukast Sodium (Singulair), 10 MG PO DAILY Omeprazole (Prilosec), 40 MG PO BID Pravastatin (Pravachol ), 20 MG PO DAILY Propranolol (Inderal), 40 MG PO BID Ranitidine Hcl (Zantac), 300 MG PO DAILY Topiramate (Topiramate), 25 MG PO BID Scheduled PRN Baclofen (Baclofen), 5 MG PO TID PRN for spasms Ondansetron Hcl (Zofran), 4 MG PO Q6H PRN for nausea/vomiting Tramadol (Ultram), 50 MG PO Q8H PRN for Pain Allergies Coded Allergies: Mushroom Extract Complex (Verified Allergy, Severe, EDEMA OF FACE, LIPS, TONGUE, 10/09/17) Shellfish (Verified Allergy, Severe, EDEMA OF FACE, LIPS, TONGUE, 10/09/17) Sumatriptan (Verified Allergy, Severe, AIRWAY EDEMA, 10/09/17) Simvastatin (Verified Allergy, Mild, WORSENING OF MUSCLE PAIN, 10/09/17) Iodine (Verified Allergy, Unknown, RASH, 10/09/17) PER ARIANA IN CT, PT IS ALLERGIC TO TOPICAL IODINE, SO OPTIRAY IS OK FOR THIS PT. Mushroom (Verified Allergy, Unknown, SHORTNESS OF BREATH, 10/09/17) Physical Exam Vital Signs Date Time Temp Pulse Resp B/P (MAP) Pulse Ox O2 Delivery O2 Flow Rate FiO2 3//18 02:55 88 20 142/70 98 10/19/17 01:19 36.7 80 20 142/86 100 Room Air Physical Exam GENERAL: Patient is well appearing and in minimal distress. HEENT: No acute trauma, normocephalic atraumatic, mucous membranes moist, no nasal congestion, no scleral icterus. NECK: No stridor, no adenopathy, no meningismus, trachea is midline. LUNGS: No dyspnea. Clear to auscultation and equal bilaterally. No wheeze, no rhonchi. HEART: Regular rate and rhythm. No murmurs, rubs, gallops appreciated. ABDOMEN: Soft, vague tenderness, bowel sounds positive, no masses appreciated, no peritonitis. BACK: No midline tenderness, no CVA tenderness EXTREMITIES: Normal motion all extremities, no cyanosis, no edema. NEUROLOGIC: Alert and oriented, no acute motor or sensory deficits, no focal weakness, cranial nerves grossly intact. SKIN: No rash, no jaundice, no diaphoresis. Medical Decision & Procedures Laboratory Results 10/19/17 01:58 Red Blood Count 4.15, Mean Corpuscular Volume 80.0, Mean Corpuscular Hemoglobin 24.8, Mean Corpuscular Hemoglobin Concent 31.0, Mean Platelet Volume 8.8, Neutrophils (%) (Auto) 71.9, Lymphocytes (%) (Auto) 16.3, Monocytes (%) (Auto) 8.5, Eosinophils (%) (Auto) 2.4, Basophils (%) (Auto) 0.4, Neutrophils # (Auto) 6.04, Lymphocytes # (Auto) 1.37, Monocytes # (Auto) 0.71, Eosinophils # (Auto) 0.20, Basophils # (Auto) 0.03 10/19/17 01:58 Test 10/19/17 01:58 White Blood Count 8.39 K/uL (4.8-10.8) Red Blood Count 4.15 M/uL (4.2-5.4) Hemoglobin 10.3 g/dL (12.0-16.0) Hematocrit 33.2 % (37-47) Mean Corpuscular Volume 80.0 fL (80-100) Mean Corpuscular Hemoglobin 24.8 pg (25-34) Mean Corpuscular Hemoglobin Concent 31.0 g/dl (32-36) Platelet Count 336 K/uL (130-400) Mean Platelet Volume 8.8 fL (7.4-10.4) Neutrophils (%) (Auto) 71.9 % Lymphocytes (%) (Auto) 16.3 % Monocytes (%) (Auto) 8.5 % Eosinophils (%) (Auto) 2.4 % Basophils (%) (Auto) 0.4 % Neutrophils # (Auto) 6.04 K/uL (1.4-6.5) Lymphocytes # (Auto) 1.37 K/uL (1.2-3.4) Monocytes # (Auto) 0.71 K/uL (0.11-0.59) Eosinophils # (Auto) 0.20 K/uL (0-0.5) Basophils # (Auto) 0.03 K/uL (0-0.2) RDW Standard Deviation 52.1 fL (36.4-46.3) RDW Coefficient of Variation 18.4 % (11.5-14.5) Immature Granulocyte % (Auto) 0.5 % Immature Granulocyte # (Auto) 0.04 K/uL (0.00-0.02) Urine Color YELLOW Urine Appearance CLEAR (CLEAR) Urine pH 8.0 (4.5-7.5) Urine Specific [place] 1.005 (1.000-1.030) Urine Protein NEG (NEG) Urine Glucose (UA) NEG (NEG) Urine Ketones NEG (NEG) Urine Occult Blood NEG (NEG) Urine Nitrite NEG (NEG) Urine Bilirubin NEG (NEG) Urine Urobilinogen NEG (NEG) Urine Leukocyte Esterase MODERATE (NEG) Urine WBC (Auto) 1-5 /hpf (0-5) Urine RBC (Auto) 0-4 /hpf (0-4) Urine Hyaline Casts (Auto) 0 /lpf (0-5) Urine Epithelial Cells (Auto) 10-20 /lpf (0-5) Urine Bacteria (Auto) NEG (NEG) Urine Test NEG (NEG) Anion Gap 7.0 mmol/L (3-11) Est Creatinine Clear Calc Drug Dose 158.2 ml/min Estimated GFR () 106.6 Estimated GFR (Non- 92.0 BUN/Creatinine Ratio 11.5 (10-20) Calcium Level 7.3 mg/dl (8.5-10.1) Total Bilirubin 0.1 mg/dl (0.2-1) Direct Bilirubin < 0.1 mg/dl (0-0.2) Aspartate Amino Transf (AST/SGOT) 10 U/L (15-37) Alanine Aminotransferase (ALT/SGPT) 16 U/L (12-78) Alkaline Phosphatase 100 U/L (45-117) Total Protein 7.7 gm/dl (6.4-8.2) Albumin 3.5 gm/dl (3.4-5.0) Lipase 218 U/L (73-393) Laboratory results as reviewed by me. Medications Administered Medications (Trade) Dose Ordered Sig/Krupa Route Start Time Stop Time Status Last Admin Dose Admin Ondansetron HCl (Zofran Inj) 4 mg NOW STAT IV 10/19/17 01:39 10/19/17 01:40 DC 10/19/17 02:12 4 MG Sodium Chloride 500 ml @ 999 mls/hr Q31M STAT IV 10/19/17 01:39 10/19/17 02:09 DC 10/19/17 02:12 999 MLS/HR ED Course 0132: The patient was evaluated in room B7. A complete history and physical exam was performed. 0245: I reevaluated the patient and she is feeling better. She thinks she had a panic attack. She states she thinks she had a panic attack and would like to go home. We discussed if her symptoms continue she may want to consider decreasing her Topamax but to discuss this with her PCP. 0250: Reevaluated the patient. Discussed results and discharge instructions: She verbalized understanding and agreement. The patient is ready for discharge. Medical Decision Differential: Sepsis, Infectious (UTI/Pneumonia/Meningitis/etc), Metabolic/ Electrolyte Abnormality, Cardiac, Dehydration, Anemia, Hepatic, Endocrine, Toxicologic, Neurologic, amongst other pathologies entertained. 32 yr old female arrives for evaluation of lightheadedness, fatigue, weakness and feeling like she is out of her body in addition to chronic head, chest, abdominal pains which she was extensively worked up for in last few weeks. She was recently started on topamax which I suspect is part of reason she is not feeling herself. She had recent upper GI bleed from PUD for which she is on iron. HgB improving from last week. Labs otherwise looking good. She has no neuro deficits. She has had extensive recent work-up and I feel further imaging would not be warranted. She is feeling much better just with re- assurance, some fluids and IV zofran. She is stable for discharge and I feel follow up with PCP reasonable. Reviewed symptoms requiring RTED. Medication Reconcilliation Current Medication List: was personally reviewed by me Impression Primary Impression: Light-headed feeling Additional Impression: Fatigue Scribe Attestation The scribe's documentation has been prepared under my direction and personally reviewed by me in its entirety. I confirm that the note above accurately reflects all work, treatment, procedures, and medical decision making performed by me. Departure Information Dispostion Home / Self-Care Referrals No Doctor, Assigned (PCP) Patient Instructions My [facility] Additional Instructions The symptoms you are having may be due to your medications and you should discuss this with your primary provider. Return if worsening symptoms, passing out, fevers, abdominal pain, or other concerns. Problem Qualifiers
[2017-10-19 02:13] LABS: BASO % 0.4 %; BASO ABS # 0.03 K/uL (0-0.2); EOS % 2.4 %; HEMATOCRIT 33.2 % (37-47); HEMOGLOBIN 10.3 g/dL (12.0-16.0); IG# 0.04 K/uL (0.00-0.02); LYMPH % 16.3 %; LYMPH ABS # 1.37 K/uL (1.2-3.4); MEAN CORPUSCULAR HEMOGLOBIN 24.8 pg (25-34); MEAN PLATELET VOLUME 8.8 fL (7.4-10.4); MONO % 8.5 %; MONO ABS # 0.71 K/uL (0.11-0.59); NEUT % 71.9 %; NEUT ABS # 6.04 K/uL (1.4-6.5); PLATELET COUNT 336 K/uL (130-400); RED CELL DISTRIBUTION WIDTH CV 18.4 % (11.5-14.5); RED CELL DISTRIBUTION WIDTH SD 52.1 fL (36.4-46.3); WHITE BLOOD COUNT 8.39 K/uL (4.8-10.8)
[2017-10-19 02:31] LABS: ALBUMIN 3.5 gm/dl (3.4-5.0); ALT/SGPT 16 U/L (12-78); AST/SGOT 10 U/L (15-37); BLOOD UREA NITROGEN 10 mg/dl (7-18); CALCIUM 7.3 mg/dl (8.5-10.1); CARBON DIOXIDE 22 mmol/L (21-32); CREATININE 0.83 mg/dl (0.60-1.20); GLUCOSE 103 mg/dl (70-99); LIPASE 218 U/L (73-393); POTASSIUM 3.8 mmol/L (3.5-5.1); SODIUM 133 mmol/L (136-145)
[2017-10-19 02:34] LABS: ALKALINE PHOSPHATASE 100 U/L (45-117); TOTAL PROTEIN 7.7 gm/dl (6.4-8.2)
[2017-10-19 02:55] VITALS: BP 142/70; PULSE 88; O2SAT 98
== END 2017-10-19 02:56 | disposition home or self-care (01) ==
LOC: C.EDB 01:13
DX: R42 Dizziness and giddiness (principal); R53.83 Other fatigue; F41.9 Anxiety disorder, unspecified; K21.9 Gastro-esophageal reflux disease without esophagitis; G43.909 Migraine, unspecified, not intractable, without status migrainosus; E28.2 Polycystic ovarian syndrome; E87.6 Hypokalemia; Z90.49 Acquired absence of other specified parts of digestive tract; Z87.898 Personal history of other specified conditions; Z83.3 Family history of diabetes mellitus; Z83.79 Family history of other diseases of the digestive system; Z82.49 Family history of ischemic heart disease and other diseases of the circulatory system; Z84.1 Family history of disorders of kidney and ureter; Z83.6 Family history of other diseases of the respiratory system; Z88.8 Allergy status to other drugs, medicaments and biological substances; Z91.013 Allergy to seafood; Z91.018 Allergy to other foods